=== PATIENT | male | born 1935 | race Caucasian/White ===

== ENCOUNTER 2016-12-10 17:58 | Emergency (ER) | payer MEDICARE, BC ==
[2016-12-10] MEDS ORDERED: cefTRIAXone(*) 1 GM in NS 0.9% 50 ML* 50 ML IVPB ONE (19:19)
[2016-12-10] MEDS ORDERED: NS 0.9% 1000 ML* 1,000 ML IV SCH (19:30)
[2016-12-10 19:47] LABS: Hematocrit 35 % (42-52); Hemoglobin 11.4 g/dl (14.0-18.0); Mean Corpuscular HGB Conc 33 g/dl (31-36); Mean Corpuscular Hemoglobin 30 pg (27-31); Mean Corpuscular Volume 92 fL (80-94); Mean Platelet Volume 7 um3 (7.4-10.4); Red Blood Count 3.77 10^6/ul (4.0-5.4); Red Cell Distribution Width 14 % (10.5-15); White Blood Count 17.9 10^3/ul (3.5-10.8)
[2016-12-10 19:56] LABS: Urine Bacteria 1+ (Absent); Urine Bilirubin Negative (Negative); Urine Glucose Negative (Negative); Urine Nitrite Positive (Negative)
[2016-12-10 20:02] LABS: Albumin 4.2 g/dL (3.2-5.2); BUN/Creatinine Ratio 35.8 (8-20); C Reactive Protein 29.22 mg/L (< 5.00); Calcium 9.5 mg/dL (8.6-10.3); EGFR Non-African American 56.8 (>60); Globulin 2.7 g/dL (2-4); Total Bilirubin 0.4 mg/dL (0.2-1.0); Total Protein 6.9 g/dL (6.4-8.9)
[2016-12-10] MEDS ORDERED: Ciprofloxacin TAB* 500 MG PO ONE ×2 (21:33→21:34)
--- NOTE | 2016-12-10 21:42 | ED ---
Lynn Sharma Thomas, scribed for Loco Mcmullen MD on 12/10/16 at 1922 . GI/ HPI - HPI Summary HPI Summary: The pt is a 81 y/o M presenting to the ED with a febrile illness (Tmax 101.5) with complaints of dizziness and subjective hotness. He says that he began to feel ill today at 15:00. He believes that his current symptoms are similar to his past symptoms of a UTI. He has an indwelling Vance catheter that was changed a week ago. Prior to arrival, the patient took a ciprofloxacin that was left over from a past UTI antibiotic regimen. 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 Pt denies cough, chest congestion, abd pain, nausea, vomiting. He has a Hx of UTIs. PMHx: UTIs, indwelling Vance d/t urinary retention, HTN, Parkinsons, osteoarthritis. PSHx: TURP. SHx: no smoking , rare alcohol use, daily Percocet for which he is prescribed. He is accompanied by his . - History of Current Complaint Chief Complaint: EDFever Time Seen by Provider: 12/10/16 19:08 Stated Complaint: FEVER Hx Obtained From: Patient, Family/Employment Programs Analyst - in room Onset/Duration: Started Hours Ago - today at 15:00, Still Present Pain Intensity: 6 Associated Signs and Symptoms: Positive: Dizziness, Constipation - chronic, secondary to Percocet, Fever - Tmax 101.. Negative: Nausea, Vomiting, Abdominal Pain, Cough, Other: - POS: subjective hotness; NEG: chest congestion Aggravating Factor(s): Nothing Alleviating Factor(s): Nothing - Additional Pertinent History Primary Care Physician: [id number] - Allergy/Home Medications Allergies/Adverse Reactions: Allergies Allergy/AdvReac Type Severity Reaction Status Date / Time Allopurinol Allergy Unknown Unknown Verified 12/10/16 18:27 Reaction Details Aspirin AdvReac Intermediate Heartburn Verified 12/10/16 18:27 Alpha Caleb Quinazolines AdvReac Dizziness Verified 12/10/16 18:27 ALPHA BLOCKERS AdvReac Dizziness Uncoded 12/10/16 18:27 PMH/Surg Hx/FS Hx/Imm Hx Previously Healthy: No Cardiovascular History: Reports: Hx Hypertension Respiratory History: Denies: Hx Pneumonia GI History: Reports: Other GI Disorders - constipation History: Reports: Hx Benign Prostatic Hyperplasia - TURP within last 5 years , Other Problems/Disorders - Hx UTIs Musculoskeletal History: Reports: Hx Arthritis - NECK SARAH SHOULDERS, Hx Tendonitis - SHOULDER Sensory History: Reports: Hx Contacts or Glasses - GLASSES Denies: Hx Hearing Aid Opthamlomology History: Reports: Hx Contacts or Glasses - GLASSES Neurological History: Reports: Other Neuro Impairments/Disorders - parkinson's disease - Surgical History Surgery Procedure, Year, and Place: 1983 ROTATOR [facility]. 2008 HERNIA [facility]. 1986 RT TOTAL KNEE [facility]. 1986 LT TOTAL KNEE [facility]. 1993 LUMBAR STENOSIS [facility]. 2011 TURP [facility] Hx Anesthesia Reactions: No Infectious Disease History: No Infectious Disease History: Denies: Traveled Outside the [place] in Last 30 Days - Family History Known Family History: Positive: Other - lung CA - mother, [place] - father - Social History Alcohol Use: Rare Substance Use Type: Reports: Prescribed Substance Use Comment - Amount & Last Used: percocet [id number] for 3-4 years Smoking Status (MU): Never Smoked Tobacco Review of Systems Positive: Fever - Tmax 101.5, Other - POS: subjective hotness Negative: Cough, Other - NEG: chest congestion Positive: Other - POS: constipation (chronic and d/t Percocet). Negative: Abdominal Pain, Vomiting, Nausea Positive: other - POS: Sx of a UTI (per patient) Neurological: Other - POS: dizziness All Other Systems Reviewed And Are Negative: Yes Physical Exam Triage Information Reviewed: Yes Vital Signs On Initial Exam: Initial Vitals Temp Pulse Resp BP Pulse Ox 101.5 F 89 24 173/63 96 12/10/16 18:02 12/10/16 18:02 12/10/16 18:02 12/10/16 18:02 12/10/16 18:02 Vital Signs Reviewed: Yes Appearance: Positive: No Pain Distress, Well-Nourished, Ill-Appearing - mild Skin: Positive: Warm, Skin Color Reflects Adequate Perfusion, Dry Head/Face: Positive: Normal Head/Face Inspection Eyes: Positive: EOMI, CLAUDIA ENT: Positive: Normal ENT inspection Neck: Positive: Supple, Nontender Respiratory/Lung Sounds: Positive: Clear to Auscultation, Breath Sounds Present Cardiovascular: Positive: RRR Abdomen Description: Positive: Nontender, Soft Musculoskeletal: Positive: Normal Neurological: Positive: Normal, Sensory/Motor Intact, Alert, Oriented to Person Place, Time Psychiatric: Positive: Affect/Mood Appropriate - Ángela Coma Scale Coma Scale Total: 15 Diagnostics - Vital Signs Vital Signs Temp Pulse Resp BP Pulse Ox 12/10/16 18:24 101.5 F 89 20 161/55 97 12/10/16 18:02 101.5 F 89 24 173/63 96 - Laboratory Lab Results: Lab Results 12/10/16 12/10/16 12/10/16 Range/Units 19:30 19:30 19:30 WBC (3.5-10.8) 10^3/ul RBC (4.0-5.4) 10^6/ul Hgb (14.0-18.0) g/dl Hct (42-52) % MCV (80-94) fL MCH (27-31) pg MCHC (31-36) g/dl RDW (10.5-15) % Plt Count (150-450) 10^3/ul MPV (7.4-10.4) um3 Neut % (Auto) (38-83) % Lymph % (Auto) (25-47) % [place] % (Auto) (1-9) % Eos % (Auto) (0-6) % Baso % (Auto) (0-2) % Absolute Neuts (auto) (1.5-7.7) 10^3/ul Absolute Lymphs (auto) (1.0-4.8) 10^3/ul Absolute Monos (auto) (0-0.8) 10^3/ul Absolute Eos (auto) (0-0.6) 10^3/ul Absolute Basos (auto) (0-0.2) 10^3/ul Absolute Nucleated RBC 10^3/ul Nucleated RBC % INR (Anticoag Therapy) 0.97 (0.89-1.11) APTT 33.3 (26.0-36.3) seconds Sodium 136 (133-145) mmol/L Potassium 5.0 (3.5-5.0) mmol/L Chloride 109 (101-111) mmol/L Carbon Dioxide 22 (22-32) mmol/L Anion Gap 5 (2-11) mmol/L BUN 44 H (6-24) mg/dL Creatinine 1.23 H (0.67-1.17) mg/dL Est GFR ( Amer) 73.0 (>60) Est GFR (Non-Af Amer) 56.8 (>60) BUN/Creatinine Ratio 35.8 H (8-20) Glucose 118 H (70-100) mg/dL Lactic Acid (0.5-2.0) mmol/L Calcium 9.5 (8.6-10.3) mg/dL Total Bilirubin 0.40 (0.2-1.0) mg/dL AST 12 L (13-39) U/L ALT 6 L (7-52) U/L Alkaline Phosphatase 74 (34-104) U/L C-Reactive Protein 29.22 H (< 5.00) mg/L B-Natriuretic Peptide 106 H ( - 100) pg/mL Total Protein 6.9 (6.4-8.9) g/dL Albumin 4.2 (3.2-5.2) g/dL Globulin 2.7 (2-4) g/dL Albumin/Globulin Ratio 1.6 (1-3) Lipase 12 (11.0-82.0) U/L Urine Color Urine Appearance Urine pH (5-9) Ur Specific [place] (1.010-1.030) Urine Protein (Negative) Urine Ketones (Negative) Urine Blood (Negative) Urine Nitrate (Negative) Urine Bilirubin (Negative) Urine Urobilinogen (Negative) Ur Leukocyte Esterase (Negative) Urine WBC (Auto) (Absent) Urine RBC (Auto) (Absent) Ur Squamous Epith Cells (Absent) Urine Bacteria (Absent) Hyaline Casts (Absent) Urine Glucose (Negative) 12/10/16 12/10/16 12/10/16 Range/Units 19:30 19:30 19:30 WBC 17.9 H (3.5-10.8) 10^3/ul RBC 3.77 L (4.0-5.4) 10^6/ul Hgb 11.4 L (14.0-18.0) g/dl Hct 35 L (42-52) % MCV 92 (80-94) fL MCH 30 (27-31) pg MCHC 33 (31-36) g/dl RDW 14 (10.5-15) % Plt Count 245 (150-450) 10^3/ul MPV 7 L (7.4-10.4) um3 Neut % (Auto) 87.4 H (38-83) % Lymph % (Auto) 4.1 L (25-47) % [place] % (Auto) 6.7 (1-9) % Eos % (Auto) 1.3 (0-6) % Baso % (Auto) 0.5 (0-2) % Absolute Neuts (auto) 15.7 H (1.5-7.7) 10^3/ul Absolute Lymphs (auto) 0.7 L (1.0-4.8) 10^3/ul Absolute Monos (auto) 1.2 H (0-0.8) 10^3/ul Absolute Eos (auto) 0.2 (0-0.6) 10^3/ul Absolute Basos (auto) 0.1 (0-0.2) 10^3/ul Absolute Nucleated RBC 0 10^3/ul Nucleated RBC % 0 INR (Anticoag Therapy) (0.89-1.11) APTT (26.0-36.3) seconds Sodium (133-145) mmol/L Potassium (3.5-5.0) mmol/L Chloride (101-111) mmol/L Carbon Dioxide (22-32) mmol/L Anion Gap (2-11) mmol/L BUN (6-24) mg/dL Creatinine (0.67-1.17) mg/dL Est GFR ( Amer) (>60) Est GFR (Non-Af Amer) (>60) BUN/Creatinine Ratio (8-20) Glucose (70-100) mg/dL Lactic Acid 1.4 (0.5-2.0) mmol/L Calcium (8.6-10.3) mg/dL Total Bilirubin (0.2-1.0) mg/dL AST (13-39) U/L ALT (7-52) U/L Alkaline Phosphatase (34-104) U/L C-Reactive Protein (< 5.00) mg/L B-Natriuretic Peptide ( - 100) pg/mL Total Protein (6.4-8.9) g/dL Albumin (3.2-5.2) g/dL Globulin (2-4) g/dL Albumin/Globulin Ratio (1-3) Lipase (11.0-82.0) U/L Urine Color Yellow Urine Appearance Clear Urine pH 5.0 (5-9) Ur Specific [place] 1.015 (1.010-1.030) Urine Protein Negative (Negative) Urine Ketones Negative (Negative) Urine Blood Negative (Negative) Urine Nitrate Positive H (Negative) Urine Bilirubin Negative (Negative) Urine Urobilinogen Negative (Negative) Ur Leukocyte Esterase 3+ H (Negative) Urine WBC (Auto) 3+(>20/hpf) H (Absent) Urine RBC (Auto) Absent (Absent) Ur Squamous Epith Cells Present H (Absent) Urine Bacteria 1+ H (Absent) Hyaline Casts Present H (Absent) Urine Glucose Negative (Negative) Result Diagrams: 12/10/16 19:30 12/10/16 19:30 Lab Statement: Any lab studies that have been ordered have been reviewed, and results considered in the medical decision making process. GIGU Course/Dx - Course Assessment/Plan: The pt is a 81 y/o M presenting to the ED with a febrile illness (Tmax 101.5) with complaints of dizziness and subjective hotness. He says that he began to feel ill today at 15:00. He believes that his current symptoms are similar to his past symptoms of a UTI. He has an indwelling Vance catheter that was changed a week ago. Prior to arrival, the patient took a ciprofloxacin that was left over from a past UTI antibiotic regimen. 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 Pt denies cough, chest congestion, abd pain, nausea, vomiting. He has a Hx of UTIs. PMHx: UTIs, indwelling Vance d/t urinary retention, HTN, Parkinsons, osteoarthritis. PSHx: TURP. SHx: no smoking, rare alcohol use, daily Percocet for which he is prescribed. He is accompanied by his . In the ED the patient was given IV fluids and Rocephin IVPB. Bloodwork shows WBC 17.9, RBC 3.77, Hgb 11.3, Hct 35, absolute neuts 15.7, absolute monos 1.2, BUN 44, creatinine 1.23, Glucose 118, AST 12, ALT 6, CRp 29.22, BNP 106. UA shows positive nitrate, 3+ leukocyte esterase, 3+ WBC, 1+ bacteria, hyaline casts, and present squamous cells. NO CRITICAL CARE TIME. DISCUSSED RESULTS WITH PATIENT. HE STATES CIPRO HAS HELPED HIM IN THE PAST. DISCUSSED ADMISSION WITH PATIENT/. HE PREFERS TO GO HOME; WILL RETURN IF WORSE. - Diagnoses Provider Diagnoses: UTI (urinary tract infection) Discharge - Discharge Plan Condition: Stable Disposition: HOME Prescriptions: Ciprofloxacin TAB* [Cipro 500 MG TAB*] 500 mg PO BID #18 tab Patient Education Materials: Urinary Tract Infection in Men (ED), Catheter- associated Urinary Tract Infection (ED) Referrals: Hector Carmen MD [Primary Care Provider] - Additional Instructions: FOLLOW UP WITH YOUR DOCTOR. RETURN TO THE EMERGENCY DEPARTMENT FOR ANY WORSENING OF YOUR CONDITION; FEVER, YOU FEEL ILL OR QUESTIONS OR CONCERNS. The documentation as recorded by the Lynn barajas Thomas accurately reflects the service I personally performed and the decisions made by me, Loco Mcmullen MD.
[2016-12-10 22:01] VITALS: BP 119/50
--- NOTE | 2016-12-15 09:00 | ED ---
Progress - Progress Note Progress Note: Pt's urine reveals ESBL - he was started on cipro to which organism is resistant. Spoke w/ pt who agrees to stop this anbx and start doxycycline - e-rx 'd to [facility] on [facility] per his request. 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 Reminded him if he has worsening of sx to return to ED - otherwise f/u w / PCP. Course/Dx - Diagnoses Provider Diagnoses: UTI (urinary tract infection)
== END 2016-12-10 22:07 | disposition home or self-care (01) ==
LOC: ED 17:58
DX: N39.0 Urinary tract infection, site not specified (principal); I10 Essential (primary) hypertension; A49.8 Other bacterial infections of unspecified site
CPT/HCPCS: 36415; 80053; 81003; 81015; 83605; 83690; 83880; 85025; 85610; 85730; 86140; 87040; 87077; 87086; 87186; 96360; 99284; A9270-GY; J0696

== ENCOUNTER 2017-02-03 01:11 | Inpatient (IN) | payer MEDICARE, BC ==
[2017-02-03] MEDS ORDERED: Acetaminophen TAB* 325 MG PO ONE (01:38)
[2017-02-03] MEDS ORDERED: NS 0.9% 1000 ML* 1,000 ML IV ONE ×2 (01:38→07:37)
[2017-02-03 02:07] LABS: Hematocrit 36 % (42-52); Mean Corpuscular HGB Conc 33 g/dl (31-36); Mean Corpuscular Hemoglobin 31 pg (27-31); Mean Corpuscular Volume 93 fL (80-94); Mean Platelet Volume 7 um3 (7.4-10.4); Red Blood Count 3.89 10^6/ul (4.0-5.4); Red Cell Distribution Width 14 % (10.5-15)
[2017-02-03 02:20] LABS: Albumin 4.5 g/dL (3.2-5.2); BUN/Creatinine Ratio 35.2 (8-20); C Reactive Protein 33.1 mg/L (< 5.00); Calcium 9.5 mg/dL (8.6-10.3); EGFR African American 54.3 (>60); EGFR Non-African American 42.2 (>60); Globulin 2.7 g/dL (2-4); Total Bilirubin 0.4 mg/dL (0.2-1.0); Total Protein 7.2 g/dL (6.4-8.9)
[2017-02-03 02:22] LABS: Potassium 5.4 mmol/L (3.5-5.0)
[2017-02-03] MEDS ORDERED: Vancomycin(*) 1,000 MG in NS 0.9% 250 ML* 250 ML IVPB ONE (02:24)
[2017-02-03 02:52] LABS: Urine Bacteria 1+ (Absent); Urine Bilirubin Negative (Negative); Urine Glucose Negative (Negative); Urine Nitrite Positive (Negative)
[2017-02-03] MEDS ORDERED: NS 0.9% 1000 ML* 2,000 ML IV ONE (03:03)
--- NOTE | 2017-02-03 03:15 | ED ---
Lina Sharma Edward, scribed for Rashaun Morgan on 02/03/17 at 0131 . HPI Febrile Illness - HPI Summary HPI Summary: 81 y/o male BIBA c/o fever starting at around 23:00 tonight. The symptoms are not aggravated or alleviated with anything. Pt also c/o increased trembling, weakness, AMS, and ABD pain. Denies any change in appetite or oral intake. Pt walks with a walker. Pt is usually alert and oriented, per pt's family. PMHx HTN , arthritis, Parkinson's. - History of Current Complaint Hx Obtained From: Patient Onset/Duration: Started Hours Ago, Still Present Associated Signs and Symptoms: Altered Mental Status, Weakness, Other: - ABD pain, increased trembling - Additional Pertinent History Primary Care Physician: [id number] - Allergy/Home Medications Allergies/Adverse Reactions: Allergies Allergy/AdvReac Type Severity Reaction Status Date / Time Allopurinol Allergy Unknown Unknown Verified 12/10/16 18:27 Reaction Details Aspirin AdvReac Intermediate Heartburn Verified 12/10/16 18:27 Alpha Caleb Quinazolines AdvReac Dizziness Verified 12/10/16 18:27 ALPHA BLOCKERS AdvReac Dizziness Uncoded 12/10/16 18:27 PMH/Surg Hx/FS Hx/Imm Hx Previously Healthy: No Cardiovascular History: Reports: Hx Hypertension Respiratory History: Denies: Hx Pneumonia GI History: Reports: Other GI Disorders - constipation History: Reports: Hx Benign Prostatic Hyperplasia - TURP within last 5 years , Other Problems/Disorders - Hx UTIs Musculoskeletal History: Reports: Hx Arthritis - NECK SARAH SHOULDERS, Hx Tendonitis - SHOULDER Sensory History: Reports: Hx Contacts or Glasses - GLASSES Denies: Hx Hearing Aid Opthamlomology History: Reports: Hx Contacts or Glasses - GLASSES Neurological History: Reports: Other Neuro Impairments/Disorders - parkinson's disease - Surgical History Surgery Procedure, Year, and Place: 1983 R[facility]. 2008 H[facility]IA [facility]. 1986 RT TOTAL KNEE [facility]. 1986 LT TOTAL KNEE [facility]. 1993 LUMBAR STENOSIS [facility]. 2011 TURP [facility] Hx Anesthesia Reactions: No - Family History Known Family History: Positive: Hypertension, Other - lung CA - mother, [place] - father Negative: Diabetes - Social History Alcohol Use: Rare Hx Substance Use: Yes Substance Use Type: Reports: Prescribed Substance Use Comment - Amount & Last Used: percocet [id number] for 3-4 years Hx Tobacco Use: No Smoking Status (MU): Never Smoked Tobacco Review of Systems Positive: Fever Eyes: Negative ENT: Negative Cardiovascular: Negative Respiratory: Negative Positive: Abdominal Pain Genitourinary: Negative Musculoskeletal: Negative Skin: Negative Neurological: Other - Increased trembling, AMS Positive: Weakness Psychological: Normal All Other Systems Reviewed And Are Negative: Yes Physical Exam Triage Information Reviewed: Yes Vital Signs On Initial Exam: Initial Vitals Temp Pulse Resp BP Pulse Ox 100.8 F 92 27 175/54 93 02/03/17 01:22 02/03/17 01:22 02/03/17 01:22 02/03/17 01:22 02/03/17 01:22 Vital Signs Reviewed: Yes Appearance: Positive: Well-Appearing, No Pain Distress Skin: Positive: Warm, Skin Color Reflects Adequate Perfusion, Dry Head/Face: Positive: Normal Head/Face Inspection Eyes: Positive: EOMI, CLAUDIA ENT: Positive: Other - Dry mucous membranes Neck: Positive: Supple, Nontender Respiratory/Lung Sounds: Positive: Clear to Auscultation, Breath Sounds Present Cardiovascular: Positive: RRR, Pulses are Symmetrical in both Upper and Lower Extremities Abdomen Description: Positive: Nontender, Soft Bowel Sounds: Positive: Present Musculoskeletal: Positive: Normal, Strength/ROM Intact Neurological: Positive: Sensory/Motor Intact, Other - Alert and confused Diagnostics - Vital Signs Vital Signs Temp Pulse Resp BP Pulse Ox 02/03/17 03:00 97 24 152/49 92 02/03/17 02:30 94 20 153/55 93 02/03/17 02:13 97 15 95 02/03/17 02:11 143/99 02/03/17 01:49 95 26 94 02/03/17 01:30 173/52 02/03/17 01:29 172/50 02/03/17 01:22 100.8 F 92 27 175/54 93 - Laboratory Lab Results: Lab Results 02/03/17 02/03/17 02/03/17 Range/Units 01:45 01:45 01:45 WBC 18.0 H (3.5-10.8) 10^3/ul RBC 3.89 L (4.0-5.4) 10^6/ul Hgb 12.0 L (14.0-18.0) g/dl Hct 36 L (42-52) % MCV 93 (80-94) fL MCH 31 (27-31) pg MCHC 33 (31-36) g/dl RDW 14 (10.5-15) % Plt Count 276 (150-450) 10^3/ul MPV 7 L (7.4-10.4) um3 Neut % (Auto) 88.1 H (38-83) % Lymph % (Auto) 4.0 L (25-47) % [place] % (Auto) 6.6 (1-9) % Eos % (Auto) 0.9 (0-6) % Baso % (Auto) 0.4 (0-2) % Absolute Neuts (auto) 15.9 H (1.5-7.7) 10^3/ul Absolute Lymphs (auto) 0.7 L (1.0-4.8) 10^3/ul Absolute Monos (auto) 1.2 H (0-0.8) 10^3/ul Absolute Eos (auto) 0.2 (0-0.6) 10^3/ul Absolute Basos (auto) 0.1 (0-0.2) 10^3/ul Absolute Nucleated RBC 0 10^3/ul Nucleated RBC % 0 INR (Anticoag Therapy) 0.97 (0.89-1.11) APTT 31.5 (26.0-36.3) seconds Sodium 136 (133-145) mmol/L Potassium 5.4 H (3.5-5.0) mmol/L Chloride 103 (101-111) mmol/L Carbon Dioxide 23 (22-32) mmol/L Anion Gap 10 (2-11) mmol/L BUN 56 H (6-24) mg/dL Creatinine 1.59 H (0.67-1.17) mg/dL Est GFR ( Amer) 54.3 (>60) Est GFR (Non-Af Amer) 42.2 (>60) BUN/Creatinine Ratio 35.2 H (8-20) Glucose 152 H (70-100) mg/dL Lactic Acid (0.5-2.0) mmol/L Calcium 9.5 (8.6-10.3) mg/dL Total Bilirubin 0.40 (0.2-1.0) mg/dL AST 13 (13-39) U/L ALT 9 (7-52) U/L Alkaline Phosphatase 84 (34-104) U/L Troponin I 0.00 (<0.04) ng/mL C-Reactive Protein 33.10 H (< 5.00) mg/L Total Protein 7.2 (6.4-8.9) g/dL Albumin 4.5 (3.2-5.2) g/dL Globulin 2.7 (2-4) g/dL Albumin/Globulin Ratio 1.7 (1-3) Lipase 10 L (11.0-82.0) U/L Urine Color Urine Appearance Urine pH (5-9) Ur Specific [place] (1.010-1.030) Urine Protein (Negative) Urine Ketones (Negative) Urine Blood (Negative) Urine Nitrate (Negative) Urine Bilirubin (Negative) Urine Urobilinogen (Negative) Ur Leukocyte Esterase (Negative) Urine WBC (Auto) (Absent) Urine RBC (Auto) (Absent) Urine Bacteria (Absent) Urine Glucose (Negative) 02/03/17 02/03/17 Range/Units 01:45 02:20 WBC (3.5-10.8) 10^3/ul RBC (4.0-5.4) 10^6/ul Hgb (14.0-18.0) g/dl Hct (42-52) % MCV (80-94) fL MCH (27-31) pg MCHC (31-36) g/dl RDW (10.5-15) % Plt Count (150-450) 10^3/ul MPV (7.4-10.4) um3 Neut % (Auto) (38-83) % Lymph % (Auto) (25-47) % [place] % (Auto) (1-9) % Eos % (Auto) (0-6) % Baso % (Auto) (0-2) % Absolute Neuts (auto) (1.5-7.7) 10^3/ul Absolute Lymphs (auto) (1.0-4.8) 10^3/ul Absolute Monos (auto) (0-0.8) 10^3/ul Absolute Eos (auto) (0-0.6) 10^3/ul Absolute Basos (auto) (0-0.2) 10^3/ul Absolute Nucleated RBC 10^3/ul Nucleated RBC % INR (Anticoag Therapy) (0.89-1.11) APTT (26.0-36.3) seconds Sodium (133-145) mmol/L Potassium (3.5-5.0) mmol/L Chloride (101-111) mmol/L Carbon Dioxide (22-32) mmol/L Anion Gap (2-11) mmol/L BUN (6-24) mg/dL Creatinine (0.67-1.17) mg/dL Est GFR ( Amer) (>60) Est GFR (Non-Af Amer) (>60) BUN/Creatinine Ratio (8-20) Glucose (70-100) mg/dL Lactic Acid 2.3 H* (0.5-2.0) mmol/L Calcium (8.6-10.3) mg/dL Total Bilirubin (0.2-1.0) mg/dL AST (13-39) U/L ALT (7-52) U/L Alkaline Phosphatase (34-104) U/L Troponin I (<0.04) ng/mL C-Reactive Protein (< 5.00) mg/L Total Protein (6.4-8.9) g/dL Albumin (3.2-5.2) g/dL Globulin (2-4) g/dL Albumin/Globulin Ratio (1-3) Lipase (11.0-82.0) U/L Urine Color Yellow Urine Appearance Cloudy Urine pH 5.0 (5-9) Ur Specific [place] 1.014 (1.010-1.030) Urine Protein Negative (Negative) Urine Ketones Negative (Negative) Urine Blood Negative (Negative) Urine Nitrate Positive H (Negative) Urine Bilirubin Negative (Negative) Urine Urobilinogen Negative (Negative) Ur Leukocyte Esterase 3+ H (Negative) Urine WBC (Auto) 3+(>20/hpf) H (Absent) Urine RBC (Auto) 1+(3-5/hpf) H (Absent) Urine Bacteria 1+ H (Absent) Urine Glucose Negative (Negative) Result Diagrams: 02/03/17 01:45 02/03/17 01:45 Lab Statement: Any lab studies that have been ordered have been reviewed, and results considered in the medical decision making process. - Radiology CXR Xray Interpretation: No Acute Changes Radiology Interpretation Completed By: ED Physician - CT HEAD CT CT Interpretation: No Acute Changes - No acute brain parenchymal abnormality. No hemorrhage, mass or acute territorial infarct. Atrophy and chronic small vessel ischemic changes. No skull fracture. Clear visualized paranasal sinuses. Visualized mastoid air cells clear. CT Interpretation Completed By: Radiologist - EKG 1 EKG Interpretation: 02:07 - SR @ 96 BPM. NO ACUTE CHANGES Course/Dx - Course Assessment/Plan: 81 y/o male BIBA c/o fever starting at around 23:00 tonight. The symptoms are not aggravated or alleviated with anything. Pt also c/o increased trembling, weakness, AMS, and ABD pain. Denies any change in appetite or oral intake. Pt walks with a walker. Pt is usually alert and oriented, per pt 's family. PMHx HTN, arthritis, Parkinson's. EKG @ 02:07 - SR @ 96 BPM. NO ACUTE CHANGES. Test results show lactic acid 2.3. HEAD CT SHOWS No acute brain parenchymal abnormality. No hemorrhage, mass or acute territorial infarct. Atrophy and chronic small vessel ischemic changes. No skull fracture. Clear visualized paranasal sinuses. Visualized mastoid air cells clear. CXR negative. Pt will be admitted to Dr. Pearson at 02:45. - Febrile Illness Differential Diagnoses: Bacteremia, Pneumonia, Pyelonephritis, Sepsis - Diagnoses Provider Diagnoses: Sepsis, Delirium, Parkinson disease - Provider Notifications Discussed Care Of Patient With: Ashvin Pearson Time Discussed With Above Provider: 02:59 Instructed by Provider To: Admit As Inpatient - Critical Care Time Critical Care Time: 30-74 min Discharge - Discharge Plan Condition: Stable Disposition: ADMITTED TO [facility] Referrals: Hector Carmen MD [Primary Care Provider] - The documentation as recorded by the Lina barajas Edward accurately reflects the service I personally performed and the decisions made by , Rashaun Morgan.
[2017-02-03] MEDS ORDERED: NS 0.9% 1000 ML* 1,000 ML IV SCH ×2 (04:45→16:30)
[2017-02-03] MEDS ORDERED: oxyCODONE/Acetamin 10/325(NF) TAB PO PRN (04:46)
[2017-02-03] MEDS ORDERED: Zosyn per Pharmacy* NOTE FOLLOW UP SCH (05:00)
[2017-02-03] MEDS: oxyCODONE/Acetamin 5/325 MG* TAB PO PRN ×3 (06:33→17:21)
[2017-02-03] MEDS: Enoxaparin(*) 30 MG/0.3 ML SYR SUBCUT SCH (06:35)
[2017-02-03] MEDS: Carbidopa/Levodop 10/100 MG TAB(*) PO SCH ×10 (07:09→22:36)
[2017-02-03] MEDS: ZOSYN 3.375 GM Q8H per EXTENDED INFUSION IVPB SCH ×6 (07:36→22:35)
--- NOTE | 2017-02-03 08:49 | RAD ---
Indication: Fever, weakness. Comparison: February 18, 2016 Technique: Noncontrast CT vertex of skull through foramen magnum. Report: The sulci, ventricles, and basal cisterns are unremarkable for age with mild involutional change. Barnes matter white matter differentiation is preserved without evidence for edema. No intra or extra axial hemorrhage, mass, or fluid collection detected. Unremarkable visualized orbital contents. Unremarkable calvarium and skull base. Unremarkable scalp. The visualized paranasal sinuses and mastoid air spaces are clear. IMPRESSION: Mild involutional change. No acute intracranial process evident.
--- NOTE | 2017-02-03 08:51 | RAD ---
Indication: Fever. Weakness. Comparison: February 18, 2016 Technique: Upright AP 0208 hours Report: Clear lungs and pleural spaces. Negative for pneumothorax. The heart, pulmonary vasculature, and mediastinal contours are unremarkable. Negative for free air beneath the diaphragm. Unremarkable osseous structures and soft tissue contours. IMPRESSION: No evidence for acute intrathoracic disease.
[2017-02-03] MEDS: Clopidogrel TAB* 75 MG PO SCH (09:42)
[2017-02-03] MEDS: Metoprolol Succinate XL TAB* 50 MG PO SCH (10:06)
[2017-02-03] MEDS: oxyCODONE TAB* 5 MG TAB PO PRN ×2 (11:11→17:21)
[2017-02-03 11:19] LABS: Hematocrit 29 % (42-52); Hemoglobin 9.6 g/dl (14.0-18.0); Mean Corpuscular HGB Conc 33 g/dl (31-36); Mean Corpuscular Hemoglobin 31 pg (27-31); Mean Corpuscular Volume 93 fL (80-94); Mean Platelet Volume 7 um3 (7.4-10.4); Red Blood Count 3.09 10^6/ul (4.0-5.4); Red Cell Distribution Width 14 % (10.5-15); White Blood Count 22.6 10^3/ul (3.5-10.8)
[2017-02-03 11:31] LABS: BUN/Creatinine Ratio 33.8 (8-20); Calcium 8.1 mg/dL (8.6-10.3); EGFR African American 57.6 (>60); EGFR Non-African American 44.8 (>60); Potassium 4.8 mmol/L (3.5-5.0)
--- NOTE | 2017-02-03 16:13 | HP ---
CC: Dr. Carmen; Dr. Gutierrez ADMISSION HISTORY AND PHYSICAL: DATE OF ADMISSION: 02/03/17 CHIEF COMPLAINT: Confusion. HISTORY OF PRESENT ILLNESS: Mr. Montana is a 81-year-old man with a history of Parkinson's disease, who developed rigors and tremors around 6 p.m. this evening suddenly. He had been in his usual state of health essentially up until then and got ill suddenly. He had a temperature of 99.1 at home. He was much weaker than usual. The only warning the patient had of any problem was his urine was that he noted that his urine smelled different yesterday. The patient denies any dysuria. He does have an indwelling catheter that is changed every 5 or [address] Gutierrez's office. The last change was about 2 weeks ago. Patient was brought to the emergency department and some confusion was noted in the emergency department including disorientation to the date. The patient was seen in the emergency department and we are asked to admit the patient. The patient was last admitted to this hospital in February 2016 with urinary tract infection and confusion. At that time, he was treated with meropenem for presumed ESBL E. coli and did well. PAST MEDICAL HISTORY: Includes Parkinson's disease, BPH with indwelling Vance, hypertension, polymyalgia rheumatica, bilateral shoulder osteoarthritis, and vertigo. PAST SURGICAL HISTORY: TURP in the past. MEDICATIONS ON ADMISSION: 1. Carbidopa/levodopa 1 tab every 2 to 2-1/2 hours throughout the day, up to 9 pills per day. 2. Clopidogrel 75 mg p.o. daily. 3. Hydrochlorothiazide 25 mg p.o. q.a.m. 4. Lisinopril 10 mg p.o. daily. 5. Meloxicam 15 mg p.o. daily. 6. Toprol XL 50 mg p.o. daily. 7. Amlodipine 10 mg p.o. daily. 8. Oxycodone/acetaminophen 10/325 one tab q.4 hours p.r.n. pain. ALLERGIES: ASPIRIN, ALLOPURINOL, ALPHA BLOCKERS. 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 He is . He has 4 children. His is his healthcare proxy. He never smoke. No alcohol or drug use. FAMILY HISTORY: Father of [place] at age 50. Mother of lung cancer, she was a nonsmoker. His sister, brother and mother all have had diabetes. REVIEW OF SYSTEMS: The patient denies any anorexia or weight loss. Patient denies any chest pain or palpitations. Patient denies any hemoptysis, shortness of breath, but has had some cough. Patient denies any abdominal pain , nausea or vomiting. The patient denies any focal weakness or sensory loss but has noted increased tremors since becoming ill this evening. Remainder of 14-point review of systems is negative other than that mentioned in the HPI. PHYSICAL EXAMINATION GENERAL: He is alert, in no acute distress. VITAL SIGNS: Temperature is 38.2, pulse 91, respirations 24, blood pressure is 141/50, O2 sat 94%. HEENT: Head is normocephalic, atraumatic. Sclerae anicteric. Pupils are equal , round and reactive to light and accommodation. Oropharynx is dry. No lesions. NECK: No JVD, no carotid bruits, no thyromegaly. LUNGS: Clear to auscultation and percussion bilaterally. HEART: Regular rate and rhythm without murmurs or gallops. ABDOMEN: Soft, nontender, positive bowel sounds. No hepatosplenomegaly. There is no CVA tenderness. EXTREMITIES: No peripheral edema. Dorsalis pedis pulses are 1+ bilaterally. NEUROLOGIC: Cranial nerves II through XII are intact. There are resting tremors in the arms and legs and generalized stiffness and cogwheeling. He is alert and oriented to person and date. DIAGNOSTIC STUDIES/LAB DATA: Sodium 136, potassium 5.4, chloride 103, bicarb 23, BUN 56, creatinine 1.59, glucose 152, calcium 9.5, albumin 4.5. AST 13, ALT 19, bilirubin 0.4. CRP 33.1, lipase 10, lactic acid 2.3. Troponin 0.00. White count 18.0, hemoglobin 12.0, hematocrit 36%, platelets 276. INR 0.97, PTT 31.5. Urinalysis shows positive nitrites, 3+ leuk esterase, 2+ red cells. EKG shows normal sinus rhythm, normal axis, early transition, but no ischemia. Chest x-ray is negative for infiltrates or effusions. Head CT shows only atrophy, no bleed or infarct. ASSESSMENT AND PLAN: 1. A 81-year-old man with sepsis due to urinary tract infection which is a complication of indwelling Vance catheter. Given the previous resistance pattern, we would suspect he has extended-spectrum beta-lactamases E. coli again. This appears to be sensitive to Zosyn in the last culture, so he can continue on Zosyn which was started in the emergency department. If he does not clinically respond to this, we can switch him to meropenem again. Due to sepsis, he has received blood cultures and urine cultures and he had 30 ml/kg of intravenous fluids in the emergency department. We will continue his IV fluid repletion on the floor. 2. The patient has acute kidney injury with creatinine above baseline. We will hydrated as above and recheck this in the morning. I suspect he has a prerenal azotemia, but if this worsens, he could have a renal ultrasound to check out postrenal obstruction. To improve kidney perfusion, he will have his diuretics held, his lisinopril held and NSAIDS will be avoided to prevent further kidney damage. 3. For Parkinson's disease, we will continue him on his Sinemet close to his usual home schedule. 4. Code status is full. Case was discussed with patient and his . 5. DVT prophylaxis will be with subcutaneous Lovenox. He is at high risk of DVT given his age and his illness. [id number]/[facility] #: [id number] [facility]y
--- NOTE | 2017-02-03 18:42 | PN ---
Subjective Date of Service: 02/03/17 Interval History: Pt reports he feels much better today. per daughter who is at the bedside she reports he is doing much better reporting he was very confused last night which has resolved today. The daughter reports he had a recent UTI in which he started abx but did not finish the course. He has an chronic indwelling shaikh that is managed by Dr. Gutierrez's office. Today he currently denies any fever or chills. No abdominal, flank or back pain. Reports good appetite. No blood noted in urine. He reports he has a generalized sense of weakness. Denies body aches. No URI symptoms. Objective Active Medications: Carbidopa/Levodopa (Sinemet Tab(*)) 0.5 tab PO Q2H [facility] Last Admin: 02/03/17 17:14 Dose: 0.5 tab Clopidogrel Bisulfate (Plavix Tab*) 75 mg PO DAILY [facility] Last Admin: 02/03/17 09:42 Dose: 75 mg Enoxaparin Sodium (Lovenox(*)) 30 mg SUBCUT Q24H [facility] Last Admin: 02/03/17 06:35 Dose: 30 mg Piperacillin Sod/Tazobactam (Sod 3.375 gm/ Sodium Chloride) 100 mls @ 25 mls/ hr IVPB Q8H [facility] Last Admin: 02/03/17 15:01 Dose: 25 mls/hr Sodium Chloride (Ns 0.9% 1000 Ml*) 1,000 mls @ 75 mls/hr IV PER RATE [facility] Stop: 02/04/17 05:49 Last Admin: 02/03/17 17:14 Dose: 75 mls/hr Metoprolol Succinate (Toprol Xl Tab*) 50 mg PO DAILY [facility] Last Admin: 02/03/17 10:06 Dose: Not Given Oxycodone HCl (Roxycodone Tab*) 5 mg PO Q4H PRN PRN Reason: PAIN Last Admin: 02/03/17 17:21 Dose: 5 mg Oxycodone/Acetaminophen (Percocet 5/325 Tab*) 1 tab PO Q4H PRN PRN Reason: PAIN Last Admin: 02/03/17 17:21 Dose: 1 tab Pharmacy Consult (Zosyn Per Pharmacy*) 1 note FOLLOW UP .ZOSYN PER PHARMACY [facility] Vital Signs 02/03/17 02/03/17 02/03/17 04:21 04:22 04:30 Temperature 100.3 F 100.3 F Pulse Rate 94 93 Respiratory 21 19 Rate Blood Pressure 143/52 143/60 (mmHg) O2 Sat by Pulse 95 95 Oximetry 02/03/17 02/03/17 02/03/17 05:00 05:30 06:00 Temperature Pulse Rate 94 94 90 Respiratory Rate Blood Pressure 133/50 129/52 133/57 (mmHg) O2 Sat by Pulse 94 94 92 Oximetry 02/03/17 02/03/17 02/03/17 06:07 06:18 06:33 Temperature 100.3 F 98.3 F Pulse Rate 92 Respiratory 18 18 Rate Blood Pressure 133/46 (mmHg) O2 Sat by Pulse 95 Oximetry 02/03/17 02/03/17 02/03/17 07:32 08:00 08:33 Temperature 99.8 F Pulse Rate 83 Respiratory 18 18 18 Rate Blood Pressure 104/38 (mmHg) O2 Sat by Pulse 96 Oximetry 02/03/17 02/03/17 02/03/17 10:36 11:11 13:11 Temperature 98.7 F Pulse Rate 60 Respiratory 18 18 18 Rate Blood Pressure 107/38 (mmHg) O2 Sat by Pulse 98 Oximetry 02/03/17 02/03/17 02/03/17 14:15 17:13 17:21 Temperature 97.8 F Pulse Rate 63 Respiratory 18 20 20 Rate Blood Pressure 120/42 (mmHg) O2 Sat by Pulse 97 Oximetry Oxygen Devices in Use Now: None Appearance: elderly male sitting up in bed in NAD, A+O x3 Eyes: No Scleral Icterus, PERRLA Ears/Nose/Mouth/Throat: NL Teeth, Lips, Gums, Mucous Membranes Moist Neck: NL Appearance and Movements; NL JVP Respiratory: Symmetrical Chest Expansion and Respiratory Effort, Clear to Auscultation Cardiovascular: NL Sounds; No Murmurs; No JVD, RRR, No Edema Abdominal: NL Sounds; No Tenderness; No Distention, - - No CVA tenderness Extremities: No Edema, No Clubbing, Cyanosis Skin: No Rash or Ulcers, No Nodules or Sclerosis Neurological: Alert and Oriented x 3, NL Sensation, NL Muscle Strength and Tone Lines/Tubes/Other Access: Clean, Dry and Intact Shaikh - draining yellow urine with noted sedement, Clean, Dry and Intact Peripheral IV Nutrition: Taking PO's Result Diagrams: 02/03/17 11:06 02/03/17 11:06 Additional Lab and Data: Lab Results 02/03/17 02/03/17 02/03/17 Range/Units 01:45 01:45 01:45 WBC 18.0 H (3.5-10.8) 10^3/ul RBC 3.89 L (4.0-5.4) 10^6/ul Hgb 12.0 L (14.0-18.0) g/dl Hct 36 L (42-52) % MCV 93 (80-94) fL MCH 31 (27-31) pg MCHC 33 (31-36) g/dl RDW 14 (10.5-15) % Plt Count 276 (150-450) 10^3/ul MPV 7 L (7.4-10.4) um3 Neut % (Auto) 88.1 H (38-83) % Lymph % (Auto) 4.0 L (25-47) % Jerauld % (Auto) 6.6 (1-9) % Eos % (Auto) 0.9 (0-6) % Baso % (Auto) 0.4 (0-2) % Absolute Neuts (auto) 15.9 H (1.5-7.7) 10^3/ul Absolute Lymphs (auto) 0.7 L (1.0-4.8) 10^3/ul Absolute Monos (auto) 1.2 H (0-0.8) 10^3/ul Absolute Eos (auto) 0.2 (0-0.6) 10^3/ul Absolute Basos (auto) 0.1 (0-0.2) 10^3/ul Absolute Nucleated RBC 0 10^3/ul Nucleated RBC % 0 INR (Anticoag Therapy) 0.97 (0.89-1.11) APTT 31.5 (26.0-36.3) seconds Sodium 136 (133-145) mmol/L Potassium 5.4 H (3.5-5.0) mmol/L Chloride 103 (101-111) mmol/L Carbon Dioxide 23 (22-32) mmol/L Anion Gap 10 (2-11) mmol/L BUN 56 H (6-24) mg/dL Creatinine 1.59 H (0.67-1.17) mg/dL Est GFR ( Amer) 54.3 (>60) Est GFR (Non-Af Amer) 42.2 (>60) BUN/Creatinine Ratio 35.2 H (8-20) Glucose 152 H (70-100) mg/dL Lactic Acid (0.5-2.0) mmol/L Calcium 9.5 (8.6-10.3) mg/dL Total Bilirubin 0.40 (0.2-1.0) mg/dL AST 13 (13-39) U/L ALT 9 (7-52) U/L Alkaline Phosphatase 84 (34-104) U/L Troponin I 0.00 (<0.04) ng/mL C-Reactive Protein 33.10 H (< 5.00) mg/L Total Protein 7.2 (6.4-8.9) g/dL Albumin 4.5 (3.2-5.2) g/dL Globulin 2.7 (2-4) g/dL Albumin/Globulin Ratio 1.7 (1-3) Lipase 10 L (11.0-82.0) U/L Urine Color Urine Appearance Urine pH (5-9) Ur Specific Vista (1.010-1.030) Urine Protein (Negative) Urine Ketones (Negative) Urine Blood (Negative) Urine Nitrate (Negative) Urine Bilirubin (Negative) Urine Urobilinogen (Negative) Ur Leukocyte Esterase (Negative) Urine WBC (Auto) (Absent) Urine RBC (Auto) (Absent) Urine Bacteria (Absent) Urine Glucose (Negative) 02/03/17 02/03/17 Range/Units 01:45 02:20 WBC (3.5-10.8) 10^3/ul RBC (4.0-5.4) 10^6/ul Hgb (14.0-18.0) g/dl Hct (42-52) % MCV (80-94) fL MCH (27-31) pg MCHC (31-36) g/dl RDW (10.5-15) % Plt Count (150-450) 10^3/ul MPV (7.4-10.4) um3 Neut % (Auto) (38-83) % Lymph % (Auto) (25-47) % Jerauld % (Auto) (1-9) % Eos % (Auto) (0-6) % Baso % (Auto) (0-2) % Absolute Neuts (auto) (1.5-7.7) 10^3/ul Absolute Lymphs (auto) (1.0-4.8) 10^3/ul Absolute Monos (auto) (0-0.8) 10^3/ul Absolute Eos (auto) (0-0.6) 10^3/ul Absolute Basos (auto) (0-0.2) 10^3/ul Absolute Nucleated RBC 10^3/ul Nucleated RBC % INR (Anticoag Therapy) (0.89-1.11) APTT (26.0-36.3) seconds Sodium (133-145) mmol/L Potassium (3.5-5.0) mmol/L Chloride (101-111) mmol/L Carbon Dioxide (22-32) mmol/L Anion Gap (2-11) mmol/L BUN (6-24) mg/dL Creatinine (0.67-1.17) mg/dL Est GFR ( Amer) (>60) Est GFR (Non-Af Amer) (>60) BUN/Creatinine Ratio (8-20) Glucose (70-100) mg/dL Lactic Acid 2.3 H* (0.5-2.0) mmol/L Calcium (8.6-10.3) mg/dL Total Bilirubin (0.2-1.0) mg/dL AST (13-39) U/L ALT (7-52) U/L Alkaline Phosphatase (34-104) U/L Troponin I (<0.04) ng/mL C-Reactive Protein (< 5.00) mg/L Total Protein (6.4-8.9) g/dL Albumin (3.2-5.2) g/dL Globulin (2-4) g/dL Albumin/Globulin Ratio (1-3) Lipase (11.0-82.0) U/L Urine Color Yellow Urine Appearance Cloudy Urine pH 5.0 (5-9) Ur Specific Vista 1.014 (1.010-1.030) Urine Protein Negative (Negative) Urine Ketones Negative (Negative) Urine Blood Negative (Negative) Urine Nitrate Positive H (Negative) Urine Bilirubin Negative (Negative) Urine Urobilinogen Negative (Negative) Ur Leukocyte Esterase 3+ H (Negative) Urine WBC (Auto) 3+(>20/hpf) H (Absent) Urine RBC (Auto) 1+(3-5/hpf) H (Absent) Urine Bacteria 1+ H (Absent) Urine Glucose Negative (Negative) Assess/Plan/Problems-Billing Assessment: 81 yo male with a PMH of Parkinsons disease, BPH with chronic indwelling shaikh, HTN, PMR and hx of vertigo who presented to the ER on 02/02 with c/o confusion and rigors. - Patient Problems (1) Sepsis Comment: suspect urine source qSOFA score is 2, making sepsis likely. Met Severe Sepsis criteria on admission Clinically improving. Confusion resolved. Lactic acid trending down, recheck in am. Decrease IVF Urine and blood cx pending, continue zosyn. check labs in am. (2) HTN (hypertension) Comment: Stable at this time. Continue home metoprolol - hold HCTZ, lisinopril, norvasc. (3) Parkinson disease Comment: Continue home Sinemet. (4) Acute on chronic renal failure Comment: a little above baseline, stable. Hold HCTZ, lisinopril. Recheck function in am, if not improving check renal ultrasound. (5) Full code status (6) DVT prophylaxis Comment: SQ Heparin Status and Disposition: inpatient LOS > 2 days
[2017-02-04] MEDS: Carbidopa/Levodop 10/100 MG TAB(*) PO SCH ×13 (01:06→23:45)
[2017-02-04] MEDS: oxyCODONE/Acetamin 5/325 MG* TAB PO PRN ×5 (03:12→23:07)
[2017-02-04] MEDS: Enoxaparin(*) 30 MG/0.3 ML SYR SUBCUT SCH (05:21)
[2017-02-04] MEDS: ZOSYN 3.375 GM Q8H per EXTENDED INFUSION IVPB SCH ×6 (05:27→22:59)
[2017-02-04] MEDS: Clopidogrel TAB* 75 MG PO SCH (08:16)
[2017-02-04] MEDS: oxyCODONE TAB* 5 MG TAB PO PRN ×3 (08:16→19:00)
[2017-02-04] MEDS: Metoprolol Succinate XL TAB* 50 MG PO SCH (08:16)
--- NOTE | 2017-02-04 08:48 | PN ---
Subjective Date of Service: 02/04/17 Interval History: Patient and seen and examined at bedside. Patient states he feels better. Has been out of bed to chair but has not ambulated yet. Lives at home with . Per nursing was close to 2 assist out of bed. Afebrile. Family History: Unchanged from Admission Social History: Unchanged from Admission Past Medical History: Unchanged from Admission Objective Active Medications: Carbidopa/Levodopa (Sinemet 10/100 Tab(*)) 0.5 tab PO Q2H [facility] Clopidogrel Bisulfate (Plavix Tab*) 75 mg PO DAILY [facility] Enoxaparin Sodium (Lovenox(*)) 30 mg SUBCUT Q24H [facility] Piperacillin Sod/Tazobactam (Sod 3.375 gm/ Sodium Chloride) 100 mls @ 25 mls/ hr IVPB Q8H [facility] Metoprolol Succinate (Toprol Xl Tab*) 50 mg PO DAILY [facility] Oxycodone HCl (Roxycodone Tab*) 5 mg PO Q4H PRN Oxycodone/Acetaminophen (Percocet 5/325 Tab*) 1 tab PO Q4H PRN Pharmacy Consult (Zosyn Per Pharmacy*) 1 note FOLLOW UP .ZOSYN PER PHARMACY [facility] 02/04/17 02/04/17 02/04/17 07:59 08:03 08:16 Temperature Pulse Rate 66 Respiratory 18 Rate Blood Pressure 150/51 143/51 (mmHg) O2 Sat by Pulse 93 Oximetry Oxygen Devices in Use Now: None Appearance: siitng up in bed, NAD Eyes: No Scleral Icterus, PERRLA Ears/Nose/Mouth/Throat: NL Teeth, Lips, Gums Neck: NL Appearance and Movements; NL JVP Respiratory: Symmetrical Chest Expansion and Respiratory Effort, Clear to Auscultation Cardiovascular: NL Sounds; No Murmurs; No JVD, RRR Abdominal: NL Sounds; No Tenderness; No Distention Extremities: No Edema Skin: No Rash or Ulcers Neurological: Alert and Oriented x 3, NL Muscle Strength and Tone Lines/Tubes/Other Access: Clean, Dry and Intact Peripheral IV Result Diagrams: 02/03/17 11:06 02/03/17 11:06 Assess/Plan/Problems-Billing 81 yo male with a PMH of Parkinsons disease, BPH with chronic indwelling shaikh, HTN, PMR and hx of vertigo who presented to the ER on 02/02 with c/o confusion and rigors found to have a UTI. - Patient Problems (1) UTI (urinary tract infection) Comment: Shaikh changed on admission. Continue IV Zosyn and await cultures. Patient has shaikh changed [id number] in Aramis's office. (2) Sepsis Comment: Present on admission secondary to UTI. Blood Cx negative. Lactic acid trending down. D/C IVF. Continue IV Zosyn awaiting cultures. (3) Acute on chronic renal failure Current Visit: Yes Status: Acute Code(s): N17.9 - ACUTE KIDNEY FAILURE, UNSPECIFIED; N18.9 - CHRONIC KIDNEY DISEASE, UNSPECIFIED SNOMED Code(s): 458286073 Comment: Cr stable at 1.5. This could be a new baseline for patient. Repeat Cr. pending. Hold Lisonpril and HCTZ. (4) HTN (hypertension) Comment: Stable at this time. Restart norvasc. Continue metoprolol. HCTZ and Lisinopril on hold. (5) Parkinson disease Comment: Continue home Sinemet. (6) DVT prophylaxis Comment: SQ Heparin (7) Full code status Status and Disposition: Inpatient for UTI. PT eval to determine if he can return home at discharge - likely tomorrow.
[2017-02-04 08:57] LABS: Comments Flag Yes; Hematocrit 28 % (42-52); Hemoglobin 9.4 g/dl (14.0-18.0); Mean Corpuscular HGB Conc 34 g/dl (31-36); Mean Corpuscular Hemoglobin 31 pg (27-31); Mean Corpuscular Volume 93 fL (80-94); Mean Platelet Volume 7 um3 (7.4-10.4); Red Blood Count 3.04 10^6/ul (4.0-5.4); Red Cell Distribution Width 14 % (10.5-15)
[2017-02-04 09:09] LABS: Calcium 8.7 mg/dL (8.6-10.3); EGFR African American 67.9 (>60); EGFR Non-African American 52.8 (>60); Potassium 4.2 mmol/L (3.5-5.0)
[2017-02-05] MEDS: Carbidopa/Levodop 10/100 MG TAB(*) PO SCH ×11 (05:10→23:00)
[2017-02-05] MEDS: Enoxaparin(*) 30 MG/0.3 ML SYR SUBCUT SCH (05:32)
[2017-02-05] MEDS: oxyCODONE/Acetamin 5/325 MG* TAB PO PRN ×4 (05:37→23:00)
[2017-02-05] MEDS: ZOSYN 3.375 GM Q8H per EXTENDED INFUSION IVPB SCH ×6 (05:51→20:40)
[2017-02-05] MEDS: Clopidogrel TAB* 75 MG PO SCH (08:08)
[2017-02-05] MEDS: Metoprolol Succinate XL TAB* 50 MG PO SCH (08:08)
--- NOTE | 2017-02-05 08:27 | PN ---
Subjective Date of Service: 02/05/17 Interval History: Patient seen and examined at bedside. Patient states he feels he is ready to go home. He says he has gotten out of bed with only one person and stats he think his can help him at home. Denies fevers, chills. Taking POs and moving bowels without difficulty. Family History: Unchanged from Admission Social History: Unchanged from Admission Past Medical History: Unchanged from Admission Objective Active Medications: Carbidopa/Levodopa (Sinemet 10/100 Tab(*)) 0.5 tab PO Q2H [facility] Clopidogrel Bisulfate (Plavix Tab*) 75 mg PO DAILY [facility] Enoxaparin Sodium (Lovenox(*)) 30 mg SUBCUT Q24H [facility] Piperacillin Sod/Tazobactam (Sod 3.375 gm/ Sodium Chloride) 100 mls @ 25 mls/ hr IVPB Q8H [facility] Metoprolol Succinate (Toprol Xl Tab*) 50 mg PO DAILY [facility] Oxycodone HCl (Roxycodone Tab*) 5 mg PO Q4H PRN Oxycodone/Acetaminophen (Percocet 5/325 Tab*) 1 tab PO Q4H PRN Pharmacy Consult (Zosyn Per Pharmacy*) 1 note FOLLOW UP .ZOSYN PER PHARMACY [facility] 02/05/17 02/05/17 06:34 07:37 Temperature 98.6 F Pulse Rate 61 Respiratory 16 18 Rate Blood Pressure 142/51 (mmHg) O2 Sat by Pulse 95 Oximetry Oxygen Devices in Use Now: None Appearance: sitting up in bed, NAD Eyes: No Scleral Icterus, PERRLA Ears/Nose/Mouth/Throat: NL Teeth, Lips, Gums Neck: NL Appearance and Movements; NL JVP Respiratory: Symmetrical Chest Expansion and Respiratory Effort, Clear to Auscultation Cardiovascular: NL Sounds; No Murmurs; No JVD, RRR Abdominal: NL Sounds; No Tenderness; No Distention Extremities: No Edema Skin: No Rash or Ulcers Neurological: Alert and Oriented x 3, NL Muscle Strength and Tone Lines/Tubes/Other Access: Clean, Dry and Intact Peripheral IV Nutrition: Taking PO's Result Diagrams: 02/04/17 08:10 02/04/17 08:09 Assess/Plan/Problems-Billing 81 yo male with a PMH of Parkinsons disease, BPH with chronic indwelling shaikh, HTN, PMR and hx of vertigo who presented to the ER on 02/02 with c/o confusion and rigors found to have a UTI. - Patient Problems (1) UTI (urinary tract infection) Comment: Cultures growing E. Coli and Pseudomonas. Await final sensitivities. Patient has shaikh changed [id number] in Aramis's office. (2) Sepsis Comment: Present on admission secondary to UTI. Now resolving. Leukocytosis trending down. (3) Acute on chronic renal failure Comment: Cr stable at 1.3. Continue to hold Lisonpril and HCTZ. (4) HTN (hypertension) Comment: Stable at this time. Restart 5mg norvasc. Continue metoprolol. HCTZ and Lisinopril on hold. (5) Parkinson disease Comment: Continue home Sinemet. (6) DVT prophylaxis Comment: SQ Heparin (7) Full code status Status and Disposition: Inpatient for UTI. PMRU vs STR as patient has OT and PT needs.
[2017-02-05] MEDS: amLODIPine TAB* 5 MG PO SCH (09:08)
[2017-02-05 09:23] LABS: Hematocrit 27 % (42-52); Hemoglobin 9.2 g/dl (14.0-18.0); Mean Corpuscular HGB Conc 34 g/dl (31-36); Mean Corpuscular Hemoglobin 31 pg (27-31); Mean Corpuscular Volume 92 fL (80-94); Mean Platelet Volume 7 um3 (7.4-10.4); Red Blood Count 2.99 10^6/ul (4.0-5.4); Red Cell Distribution Width 14 % (10.5-15)
[2017-02-05 09:50] LABS: BUN/Creatinine Ratio 22.8 (8-20); Calcium 8.7 mg/dL (8.6-10.3); EGFR African American 79.7 (>60); Potassium 4.1 mmol/L (3.5-5.0)
[2017-02-06] MEDS: oxyCODONE TAB* 5 MG TAB PO PRN ×4 (01:02→23:47)
[2017-02-06] MEDS: Carbidopa/Levodop 10/100 MG TAB(*) PO SCH ×12 (01:03→22:14)
[2017-02-06] MEDS: CMCS Melatonin (NF) 3 MG TAB PO PRN ×2 (01:03→22:44)
[2017-02-06] MEDS: oxyCODONE/Acetamin 5/325 MG* TAB PO PRN ×5 (06:27→23:47)
[2017-02-06] MEDS: Enoxaparin(*) 30 MG/0.3 ML SYR SUBCUT SCH (06:29)
[2017-02-06] MEDS: ZOSYN 3.375 GM Q8H per EXTENDED INFUSION IVPB SCH ×6 (06:32→22:40)
[2017-02-06] MEDS: Clopidogrel TAB* 75 MG PO SCH (09:43)
[2017-02-06] MEDS: Metoprolol Succinate XL TAB* 50 MG PO SCH (09:43)
[2017-02-06] MEDS: amLODIPine TAB* 5 MG PO SCH (09:44)
--- NOTE | 2017-02-06 12:10 | CONSULT ---
Consult Consult: Consultation for Evaluation of Medical Decision Making Capacity. S: 81 y.o. white male with a history of Parkinson's Disease admitted for acute UTI is approaching medical clearance and primary team feels he would benefit from subacute rehab, however, the patient is declining this, stating his preference to return home. Staff reports indicate that he had been confused and encephalopathic, related to the active infection, but that his cognition has improved. They remain concerned that the patient is not physically strong enough to be home. He lacks adequate support in the home setting, as his has physical limitations as well and aides are not available for significant periods of the week. On exam the patient is calm and cooperative. He is aware that the primary team is recommending rehab and he is able to articulate the risks of declining their treatment recommendation. "Oh, a lot of bad things could happen. It would be tough to get around. I'm not at full strength yet. I could fall." Despite this understanding, he insists that he could make due. O: Patient scores 28/30 on MMSE missing 2 points for delayed recall. A/P: Capacity: Psychiatry deems that this patient currently does have capacity to make informed medical decisions. Please note that capacity is not a static aptitude and can change at any point, depending on clinical variables. Please feel free to re-consult if there are changes in the patient's presentation.
--- NOTE | 2017-02-06 12:58 | PN ---
Subjective Date of Service: 02/06/17 Interval History: Patient seen and examined at bedside. Patient states that his mobility is improving. Patient states that he rarely plugs up his catheter and responds that he does do it every now and then. Afebrile. Family History: Unchanged from Admission Social History: Unchanged from Admission Past Medical History: Unchanged from Admission Objective Active Medications: Amlodipine Besylate (Norvasc Tab*) 5 mg PO DAILY [facility] Carbidopa/Levodopa (Sinemet 10/100 Tab(*)) 0.5 tab PO Q2H [facility] Clopidogrel Bisulfate (Plavix Tab*) 75 mg PO DAILY [facility] Enoxaparin Sodium (Lovenox(*)) 30 mg SUBCUT Q24H [facility] Piperacillin Sod/Tazobactam (Sod 3.375 gm/ Sodium Chloride) 100 mls @ 25 mls/ hr IVPB Q8H [facility] Melatonin (Melatonin (Nf)) 3 mg PO BEDTIME PRN; Protocol Metoprolol Succinate (Toprol Xl Tab*) 50 mg PO DAILY [facility] Oxycodone HCl (Roxycodone Tab*) 5 mg PO Q4H PRN Oxycodone/Acetaminophen (Percocet 5/325 Tab*) 1 tab PO Q4H PRN Pharmacy Consult (Zosyn Per Pharmacy*) 1 note FOLLOW UP .ZOSYN PER PHARMACY [facility] 02/06/17 02/06/17 02/06/17 07:26 08:00 08:27 Temperature Pulse Rate 55 Respiratory 16 16 18 Rate Blood Pressure 151/59 (mmHg) O2 Sat by Pulse 93 Oximetry Oxygen Devices in Use Now: None Appearance: sitting up in bed, NAD Eyes: No Scleral Icterus, PERRLA Ears/Nose/Mouth/Throat: NL Teeth, Lips, Gums Neck: NL Appearance and Movements; NL JVP Respiratory: Symmetrical Chest Expansion and Respiratory Effort, Clear to Auscultation Cardiovascular: NL Sounds; No Murmurs; No JVD, RRR Abdominal: NL Sounds; No Tenderness; No Distention Extremities: No Edema Skin: No Rash or Ulcers Neurological: Alert and Oriented x 3, NL Muscle Strength and Tone Lines/Tubes/Other Access: Clean, Dry and Intact Peripheral IV Nutrition: Taking PO's Result Diagrams: 02/05/17 08:21 02/05/17 08:21 Assess/Plan/Problems-Billing 81 yo male with a PMH of Parkinsons disease, BPH with chronic indwelling shaikh, HTN, PMR and hx of vertigo who presented to the ER on 02/02 with c/o confusion and rigors found to have a UTI. - Patient Problems (1) UTI (urinary tract infection) Comment: Cultures growing E. Coli and Pseudomonas only sensitive both to IV Zosyn. Will continue IV Zosyn for 7 day course - to complete with last dose Saturday evening. (2) Sepsis Comment: Present on admission secondary to UTI. Now resolved. (3) Acute on chronic renal failure Comment: Cr back down to 1.1. Restart Lisinopril and HCTZ. (4) HTN (hypertension) Comment: Stable at this time. Continue metoprolol and restart HCTZ and Lisinopril. (5) Parkinson disease Comment: Continue home Sinemet. (6) DVT prophylaxis Comment: SQ Heparin (7) Full code status Status and Disposition: Inpatient for UTI. Patient has clear PT needs and now that he needs IV Abx until Saturday AM he is agreeable to rehab. Will see if they will take him with IV Zosyn. Continue mobility and PT.
--- NOTE | 2017-02-06 13:25 | CONS ---
CONSULTATION REPORT: DATE OF CONSULT: 02/06/17 REQUESTING PROVIDER: Nikky June NP CONSULTING SERVICE: Infectious Disease. REASON FOR CONSULT: Sepsis due to cystitis. IMPRESSION: 1. Sepsis present on admission. 2. Infection of chronic urinary catheter and cystitis due to ESBL-producing Escherichia coli and ps eudomonas. Each present 1000 colonies, improving on Zosyn. 3. 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 4. Urinary tract infection in the past. 5. Parkinson's disease. 6. Encephalopathy was present on admission as well and resolved. RECOMMENDATION: Continue Zosyn to complete 7 days of IV antibiotics as there are no oral options fo r these bacteria. I discussed with the patient's family that there are not good oral options for lomeli ppression either given the resistance profile of the pseudomonas isolate. However, we assume the ES BL organism is the main issue as this has grown a number of times in the past, then a consideration would be suppressive doxycycline for some period of time at 100 mg twice daily. HISTORY OF PRESENT ILLNESS: This is a 81-year-old male with a chronic Vance catheter, admitted with sepsis. His family found him to be not making sense. He was having fevers and was weaker, could n ot get around the house. He was brought to the emergency room on 02/03/17. He was febrile at 38.2, he had leukocytosis of 18,000. Urinalysis was sent, which showed blood nitrites, leukocyte esteras e, urine culture with results as above. His Vance catheter was changed, last that was done was abou t 2 weeks ago. He has been on Zosyn while he has been here. His energy, weakness, and balance have all improved. His fevers have resolved. Last infection was in November due to E. coli and in er 2015, he had admission for the same. PAST MEDICAL HISTORY: 1. Recurrent urinary tract infection. 2. 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 3. Status post transurethral resection of the prostate. 4. Parkinson's disease. 5. Hypertension. 6. Polymyalgia rheumatica. 7. Osteoarthritis. 8. Vertigo. MEDICATIONS: 1. Sinemet. 2. Enoxaparin. 3. Plavix. 4. Metoprolol. 5. Zosyn 3.375 g IV every 8 hours by extended infusion. 6. Amlodipine. 7. Oxycodone. ALLERGIES: ASPIRIN, ALLOPURINOL, ALPHA LEON. FAMILY HISTORY: Father from [place] at age of 50. Mother from lung cancer. SOCIAL HISTORY: He lives in [place] with his , non-smoker. He is retired from the [employer]. REVIEW OF SYSTEMS: [id number] review of systems was negative except as noted above. PHYSICAL EXAM: Vital Signs: Temperature 36.6, heart rate 55, respiratory rate 16, blood pressure 1 50/60, O2 sat 93% on room air. In general, he is awake, not in distress. Neurologic: He is orient ed x3. Follows all commands. HEENT: There is no conjunctival hemorrhage. Oropharynx is without l esions. Neck: Supple without nuchal rigidity. Lymph Nodes: There is no inguinal, axillary, or ep itrochlear lymphadenopathy. Heart has regular rate and rhythm without murmurs, rubs, or gallops. L ungs are clear to auscultation bilaterally. Abdomen is soft, nontender, and nondistended. There ar e bowel sounds present. Skin: There is no rash or splinter hemorrhages. Musculoskeletal: There i s no spine tenderness to palpation. Genitourinary: There is a Vance catheter present. LABORATORY DA TA: White blood count 16, hemoglobin 9.2, platelets 206. Creatinine is 1.1, down from 1.6. The bl ood cultures are negative. Please see impression and recommendations as outlined above, which I have discussed with Nikky June NP. [id number]/[facility] #: [id number]
[2017-02-07] MEDS: Carbidopa/Levodop 10/100 MG TAB(*) PO SCH ×12 (01:50→23:34)
[2017-02-07] MEDS: oxyCODONE/Acetamin 5/325 MG* TAB PO PRN ×5 (05:51→21:45)
[2017-02-07] MEDS: Enoxaparin(*) 30 MG/0.3 ML SYR SUBCUT SCH (05:53)
[2017-02-07] MEDS: ZOSYN 3.375 GM Q8H per EXTENDED INFUSION IVPB SCH ×6 (05:53→21:53)
[2017-02-07 07:23] LABS: Hematocrit 28 % (42-52); Hemoglobin 9.7 g/dl (14.0-18.0); Mean Corpuscular HGB Conc 35 g/dl (31-36); Mean Corpuscular Hemoglobin 31 pg (27-31); Mean Corpuscular Volume 91 fL (80-94); Mean Platelet Volume 7 um3 (7.4-10.4); Red Blood Count 3.11 10^6/ul (4.0-5.4); Red Cell Distribution Width 13 % (10.5-15); White Blood Count 8.1 10^3/ul (3.5-10.8)
[2017-02-07] MEDS: oxyCODONE TAB* 5 MG TAB PO PRN (08:52)
[2017-02-07] MEDS: Clopidogrel TAB* 75 MG PO SCH (08:53)
[2017-02-07] MEDS: Metoprolol Succinate XL TAB* 50 MG PO SCH (08:58)
[2017-02-07] MEDS: amLODIPine TAB* 5 MG PO SCH (08:58)
--- NOTE | 2017-02-07 12:05 | PN ---
Subjective Date of Service: 02/07/17 Interval History: This is a 81 yo male with Parkinson's and chronic indwelling Shaikh who presented with AMS, admitted for sepsis secondary to UTI. Cx grew Pseudomonas and ESBL EColi, ID recommendation includes Zosyn x 7d. Patient reports that he is feeling well. He is anxious to return home. He denies abd pain, n/v. No CP or SOB. Objective Active Medications: Amlodipine Besylate (Norvasc Tab*) 5 mg PO DAILY [facility] Last Admin: 02/07/17 08:58 Dose: 5 mg Carbidopa/Levodopa (Sinemet Tab(*)) 0.5 tab PO Q2H [facility] Last Admin: 02/07/17 10:40 Dose: 0.5 tab Clopidogrel Bisulfate (Plavix Tab*) 75 mg PO DAILY [facility] Last Admin: 02/07/17 08:53 Dose: 75 mg Enoxaparin Sodium (Lovenox(*)) 30 mg SUBCUT Q24H [facility] Last Admin: 02/07/17 05:53 Dose: 30 mg Piperacillin Sod/Tazobactam (Sod 3.375 gm/ Sodium Chloride) 100 mls @ 25 mls/ hr IVPB Q8H [facility] Last Admin: 02/07/17 05:53 Dose: 25 mls/hr Melatonin (Melatonin (Nf)) 3 mg PO BEDTIME PRN; Protocol PRN Reason: Sleep Last Admin: 02/06/17 22:44 Dose: 3 mg Metoprolol Succinate (Toprol Xl Tab*) 50 mg PO DAILY [facility] Last Admin: 02/07/17 08:58 Dose: 50 mg Oxycodone HCl (Roxycodone Tab*) 5 mg PO Q4H PRN PRN Reason: PAIN Last Admin: 02/06/17 23:47 Dose: 5 mg Oxycodone/Acetaminophen (Percocet 5/325 Tab*) 1 tab PO Q4H PRN PRN Reason: PAIN Last Admin: 02/07/17 09:58 Dose: 1 tab Pharmacy Consult (Zosyn Per Pharmacy*) 1 note FOLLOW UP .ZOSYN PER PHARMACY [facility] Vital Signs: Temp Pulse Resp BP Pulse Ox 97.2 F 58 16 176/64 100 02/06/17 23:21 02/07/17 08:59 02/07/17 11:58 02/07/17 08:59 02/07/17 08:59 Oxygen Devices in Use Now: None Appearance: Relatively well appearing elderly male in NAD. Accompanied by family. Respiratory: Symmetrical Chest Expansion and Respiratory Effort, Clear to Auscultation Cardiovascular: NL Sounds; No Murmurs; No JVD, RRR Abdominal: NL Sounds; No Tenderness; No Distention Extremities: No Edema Skin: No Rash or Ulcers Neurological: Alert and Oriented x 3 Result Diagrams: 02/07/17 06:44 02/05/17 08:21 Additional Lab and Data: . Assess/Plan/Problems-Billing 81 yo male with a PMH of Parkinsons disease, BPH with chronic indwelling shaikh, HTN, PMR and hx of vertigo who presented to the ER on 02/02 with c/o confusion and rigors found to have a UTI. - Patient Problems (1) Sepsis Comment: Met severe sepsis criteria at admission Secondary to UTI. Now resolved. (2) UTI (urinary tract infection) Comment: Cultures growing E. Coli and Pseudomonas only sensitive both to IV Zosyn, no oral options Appreciate ID input Will continue IV Zosyn for 7 day course - (thru 02/09) (3) Acute on chronic renal failure Comment: Secondary to sepsis Cr back down to near baseline Lisinopril and HCTZ resumed (4) HTN (hypertension) Comment: Noted HTN this am, but avg normotensive Continue metoprolol and restart HCTZ and Lisinopril. (5) Parkinson disease Comment: Continue home Sinemet. Gait instability at baseline (6) DVT prophylaxis Comment: SQ Lovenox (7) Full code status Status and Disposition: Inpatient for UTI. Complete 7d Zosyn, plan for dc 02/10
[2017-02-08] MEDS: Carbidopa/Levodop 10/100 MG TAB(*) PO SCH ×11 (01:23→21:39)
[2017-02-08] MEDS: CMCS Melatonin (NF) 3 MG TAB PO PRN (02:59)
[2017-02-08] MEDS: oxyCODONE/Acetamin 5/325 MG* TAB PO PRN ×5 (05:24→21:40)
[2017-02-08] MEDS: ZOSYN 3.375 GM Q8H per EXTENDED INFUSION IVPB SCH ×6 (05:24→21:00)
[2017-02-08] MEDS: Enoxaparin(*) 30 MG/0.3 ML SYR SUBCUT SCH (05:25)
[2017-02-08] MEDS ORDERED: diPHENhydraMINE PO* 25 MG PO ONE (06:35)
[2017-02-08] MEDS: Clopidogrel TAB* 75 MG PO SCH (09:25)
[2017-02-08] MEDS: amLODIPine TAB* 5 MG PO SCH (09:47)
[2017-02-08] MEDS: Metoprolol Succinate XL TAB* 50 MG PO SCH (09:47)
[2017-02-08] MEDS: Polyethylene Glycol 3350* 17 GM PACKET PO PRN (13:22)
--- NOTE | 2017-02-08 14:41 | PN ---
Subjective Date of Service: 02/08/17 Interval History: Patient offers no new acute complaints today. Still anxious to leave the hospital. Objective Active Medications: Amlodipine Besylate (Norvasc Tab*) 5 mg PO DAILY [facility] Last Admin: 02/08/17 09:47 Dose: Not Given Carbidopa/Levodopa (Sinemet 10/100 Tab(*)) 0.5 tab PO Q2H [facility] Last Admin: 02/08/17 13:22 Dose: 0.5 tab Clopidogrel Bisulfate (Plavix Tab*) 75 mg PO DAILY [facility] Last Admin: 02/08/17 09:25 Dose: 75 mg Enoxaparin Sodium (Lovenox(*)) 30 mg SUBCUT Q24H [facility] Last Admin: 02/08/17 05:25 Dose: 30 mg Piperacillin Sod/Tazobactam (Sod 3.375 gm/ Sodium Chloride) 100 mls @ 25 mls/ hr IVPB Q8H [facility] Last Admin: 02/08/17 13:22 Dose: 25 mls/hr Melatonin (Melatonin (Nf)) 3 mg PO BEDTIME PRN; Protocol PRN Reason: Sleep Last Admin: 02/08/17 02:59 Dose: 3 mg Metoprolol Succinate (Toprol Xl Tab*) 50 mg PO DAILY [facility] Last Admin: 02/08/17 09:47 Dose: Not Given Oxycodone HCl (Roxycodone Tab*) 5 mg PO Q4H PRN PRN Reason: PAIN Last Admin: 02/06/17 23:47 Dose: 5 mg Oxycodone/Acetaminophen (Percocet 5/325 Tab*) 1 tab PO Q4H PRN PRN Reason: PAIN Last Admin: 02/08/17 13:55 Dose: 1 tab Pharmacy Consult (Zosyn Per Pharmacy*) 1 note FOLLOW UP .ZOSYN PER [facility]ACY [facility] Polyethylene Glycol/Electrolytes (Miralax*) 17 gm PO DAILY PRN PRN Reason: CONSTIPATION Last Admin: 02/08/17 13:22 Dose: 17 gm Vital Signs: Temp Pulse Resp BP Pulse Ox 98.2 F 52 10 139/58 97 02/08/17 11:23 02/08/17 11:23 02/08/17 13:55 02/08/17 11:23 02/08/17 11:23 Oxygen Devices in Use Now: None Appearance: Well appearing elderly gentleman in NAD Respiratory: Symmetrical Chest Expansion and Respiratory Effort, Clear to Auscultation Cardiovascular: NL Sounds; No Murmurs; No JVD, RRR Extremities: No Edema Skin: No Rash or Ulcers Neurological: Alert and Oriented x 3 Result Diagrams: 02/07/17 06:44 02/05/17 08:21 Additional Lab and Data: . Assess/Plan/Problems-Billing 81 yo male with a PMH of Parkinsons disease, BPH with chronic indwelling shaikh, HTN, PMR and hx of vertigo who presented to the ER on 02/02 with c/o confusion and rigors found to have a UTI. - Patient Problems (1) Sepsis Comment: Met severe sepsis criteria at admission Secondary to UTI. Now resolved. (2) UTI (urinary tract infection) Comment: Cultures growing E. Coli and Pseudomonas only sensitive both to IV Zosyn, no oral options Appreciate ID input Will continue IV Zosyn for 7 day course - (thru 02/09) (3) Acute on chronic renal failure Comment: Secondary to sepsis Cr back down to near baseline Lisinopril and HCTZ resumed (4) HTN (hypertension) Comment: Normotensive Continue metoprolol and restart HCTZ and Lisinopril. (5) Parkinson disease Comment: Continue home Sinemet. Gait instability at baseline (6) DVT prophylaxis Comment: SQ Lovenox (7) Full code status Status and Disposition: Inpatient for UTI. Complete 7d Zosyn, plan for dc 02/10
[2017-02-08] MEDS: oxyCODONE TAB* 5 MG TAB PO PRN (17:55)
[2017-02-09] MEDS: Carbidopa/Levodop 10/100 MG TAB(*) PO SCH ×12 (00:31→22:08)
[2017-02-09] MEDS: CMCS Melatonin (NF) 3 MG TAB PO PRN ×2 (00:31→19:59)
[2017-02-09] MEDS: ZOSYN 3.375 GM Q8H per EXTENDED INFUSION IVPB SCH ×6 (05:15→22:07)
[2017-02-09] MEDS: Enoxaparin(*) 30 MG/0.3 ML SYR SUBCUT SCH (05:15)
[2017-02-09] MEDS: oxyCODONE/Acetamin 5/325 MG* TAB PO PRN ×5 (05:30→22:12)
[2017-02-09] MEDS: amLODIPine TAB* 5 MG PO SCH (09:17)
[2017-02-09] MEDS: oxyCODONE TAB* 5 MG TAB PO PRN ×2 (09:17→13:40)
[2017-02-09] MEDS: Clopidogrel TAB* 75 MG PO SCH (09:17)
[2017-02-09] MEDS: Metoprolol Succinate XL TAB* 50 MG PO SCH (09:20)
--- NOTE | 2017-02-09 15:46 | PN ---
Subjective Date of Service: 02/09/17 Interval History: Patient offers no new complaints. No abd pain, n/v, CP, SOB Objective Active Medications: Amlodipine Besylate (Norvasc Tab*) 5 mg PO DAILY [facility] Last Admin: 02/09/17 09:17 Dose: 5 mg Carbidopa/Levodopa (Sinemet 10/100 Tab(*)) 0.5 tab PO Q2H [facility] Last Admin: 02/09/17 15:32 Dose: 0.5 tab Clopidogrel Bisulfate (Plavix Tab*) 75 mg PO DAILY [facility] Last Admin: 02/09/17 09:17 Dose: 75 mg Enoxaparin Sodium (Lovenox(*)) 30 mg SUBCUT Q24H [facility] Last Admin: 02/09/17 05:15 Dose: 30 mg Piperacillin Sod/Tazobactam (Sod 3.375 gm/ Sodium Chloride) 100 mls @ 25 mls/ hr IVPB Q8H [facility] Last Admin: 02/09/17 13:40 Dose: 25 mls/hr Melatonin (Melatonin (Nf)) 3 mg PO BEDTIME PRN; Protocol PRN Reason: Sleep Last Admin: 02/09/17 00:31 Dose: 3 mg Metoprolol Succinate (Toprol Xl Tab*) 50 mg PO DAILY [facility] Last Admin: 02/09/17 09:20 Dose: Not Given Oxycodone HCl (Roxycodone Tab*) 5 mg PO Q4H PRN PRN Reason: PAIN Last Admin: 02/09/17 13:40 Dose: 5 mg Oxycodone/Acetaminophen (Percocet 5/325 Tab*) 1 tab PO Q4H PRN PRN Reason: PAIN Last Admin: 02/09/17 13:39 Dose: 1 tab Pharmacy Consult (Zosyn Per Pharmacy*) 1 note FOLLOW UP .ZOSYN PER PHARMACY [facility] Polyethylene Glycol/Electrolytes (Miralax*) 17 gm PO DAILY PRN PRN Reason: CONSTIPATION Last Admin: 02/08/17 13:22 Dose: 17 gm Vital Signs: Temp Pulse Resp BP Pulse Ox 98.1 F 69 18 187/74 99 02/09/17 15:26 02/09/17 15:26 02/09/17 15:26 02/09/17 15:26 02/09/17 15:26 Oxygen Devices in Use Now: None Appearance: Well appearing, in NAD. Respiratory: Symmetrical Chest Expansion and Respiratory Effort, Clear to Auscultation Cardiovascular: NL Sounds; No Murmurs; No JVD, RRR Abdominal: NL Sounds; No Tenderness; No Distention Extremities: No Edema Skin: No Rash or Ulcers Neurological: Alert and Oriented x 3 Result Diagrams: 02/07/17 06:44 02/05/17 08:21 Additional Lab and Data: . Assess/Plan/Problems-Billing 81 yo male with a PMH of Parkinsons disease, BPH with chronic indwelling shaikh, HTN, PMR and hx of vertigo who presented to the ER on 02/02 with c/o confusion and rigors found to have a UTI. - Patient Problems (1) Sepsis Comment: Met severe sepsis criteria at admission Secondary to UTI. Now resolved. (2) UTI (urinary tract infection) Comment: Cultures growing E. Coli and Pseudomonas only sensitive both to IV Zosyn, no oral options Appreciate ID input Will continue IV Zosyn for 7 day course - (thru 02/09) (3) Acute on chronic renal failure Comment: Secondary to sepsis Cr back down to near baseline Lisinopril and HCTZ resumed (4) HTN (hypertension) Comment: Normotensive Continue metoprolol and restart HCTZ and Lisinopril. (5) Parkinson disease Comment: Continue home Sinemet. Gait instability at baseline (6) DVT prophylaxis Comment: SQ Lovenox (7) Full code status Status and Disposition: Inpatient for UTI. Complete 7d Zosyn, plan for dc 02/10
[2017-02-10] MEDS: Carbidopa/Levodop 10/100 MG TAB(*) PO SCH ×6 (00:18→10:47)
[2017-02-10] MEDS: oxyCODONE/Acetamin 5/325 MG* TAB PO PRN (03:50)
[2017-02-10 06:19] LABS: Hematocrit 29 % (42-52); Hemoglobin 9.9 g/dl (14.0-18.0); Mean Corpuscular HGB Conc 34 g/dl (31-36); Mean Corpuscular Hemoglobin 31 pg (27-31); Mean Corpuscular Volume 92 fL (80-94); Mean Platelet Volume 7 um3 (7.4-10.4); Red Blood Count 3.17 10^6/ul (4.0-5.4); Red Cell Distribution Width 14 % (10.5-15); White Blood Count 9.5 10^3/ul (3.5-10.8)
[2017-02-10 06:21] LABS: Add Diff/Slide Review? Slide Review Added; Comments Flag Yes
[2017-02-10] MEDS: Enoxaparin(*) 30 MG/0.3 ML SYR SUBCUT SCH (06:21)
[2017-02-10 06:32] LABS: BUN/Creatinine Ratio 23.3 (8-20); Calcium 9.1 mg/dL (8.6-10.3); EGFR African American 110.3 (>60); EGFR Non-African American 85.8 (>60); Potassium 4.1 mmol/L (3.5-5.0)
[2017-02-10] MEDS ORDERED: oxyCODONE/Acetamin 5/325 MG* TAB PO PRN (08:13)
[2017-02-10] MEDS ORDERED: oxyCODONE/Acetamin 5/325 MG* TAB ONE (08:29)
[2017-02-10 08:35] VITALS: BP 136/56
[2017-02-10] MEDS: Clopidogrel TAB* 75 MG PO SCH (08:35)
[2017-02-10] MEDS: Metoprolol Succinate XL TAB* 50 MG PO SCH (08:35)
[2017-02-10] MEDS: amLODIPine TAB* 5 MG PO SCH (08:35)
[2017-02-10] MEDS: Polyethylene Glycol 3350* 17 GM PACKET PO PRN (08:48)
--- NOTE | 2017-02-10 10:43 | DS ---
CC: Dr. Carmen; Dr. Gutierrez * DISCHARGE SUMMARY: DATE OF ADMISSION: 02/03/17 DATE OF DISCHARGE: 02/10/17 PRIMARY CARE PROVIDER: Dr. Carmen. CONSULTING INFECTIOUS DISEASE SPECIALIST: Dr. Sergio Markham. PRIMARY UROLOGIST: Dr. Gutierrez. DISCHARGING PROVIDER: LIANNE Maicas SUPERVISING PHYSICIAN: Dr. Prem Hernandez * (DICTATED BY LIANNE MACIAS) PRIMARY DISCHARGE DIAGNOSES: 1. Sepsis secondary to catheter-associated urinary tract infection with ESBL E. coli and quinolone-resistant Pseudomonas. 2. Acute on chronic renal failure secondary to sepsis, resolved. SECONDARY DISCHARGE DIAGNOSES: 1. Hypertension. 2. Parkinson's disease. DISCHARGE MEDICATIONS: 1. Sinemet 10/100 takes 9 tablets daily and generally spread out throughout the day. 2. Plavix 75 mg p.o. daily. 3. Hydrochlorothiazide 25 mg p.o. daily. 4. Lisinopril 10 mg p.o. daily. 5. Meloxicam 15 mg p.o. daily. 6. Metoprolol succinate 50 mg p.o. daily. 7. Amlodipine 10 mg p.o. daily. 8. Percocet 10/325 one tablet p.o. q.4 hours as needed for pain. MEDICATION CHANGES: None. HOSPITAL IMAGIN. Chest x-ray shows no evidence for acute intrathoracic disease. 2. CT of the brain shows mild involutional change, but no acute intracranial process noted. HOSPITAL COURSE: This is a 81-year-old gentleman with Parkinson as well as BPH with a chronic indwelling Vance catheter, who presented to the emergency department with complaints of altered mental status. The patient was noted to be febrile with an initial temperature measured at 100.8 degrees Fahrenheit. He was normotensive to hypertensive with the heart rate in the 90s. DIAGNOSTIC STUDIES/LAB DATA: Initial labs showed a significant leukocytosis with a white blood cell count of 18,000, which eventually peaked at 22,000. He was hyperkalemic with a potassium of 5.4 and noted acute on chronic kidney injury with BUN up to 56, creatinine of 1.59. Lactic acid was elevated at 2.3, which peaked at 3.1 and a CRP was moderately elevated at 33. Urinalysis was positive for nitrites, leuk esterase and bacteria. The patient was empirically treated for sepsis secondary to urinary tract infection. Blood cultures were negative. Urine culture eventually grew Pseudomonas and ESBL positive E. coli. Pseudomonas was resistant to quinolones and E. coli sensitive to meropenem, gentamicin, Zosyn and Augmentin. Due to the sensitivity pattern, his oral options for treatment were none. The patient was subsequently hospitalized for IV Zosyn for a total of 7 days. He did meet with Infectious Disease specialist, Dr. Sergio Markham who recommended that treatment. There was question as to the patient's safety at home as he has significant balance issues due to his Parkinson's and the patient seems to have little insight into these limitations and potential hazards as a result. His capacity to continue to make medical decision specifically to go home without additional assistance was called into question and the patient met with psychiatrist, Dr. Pereira, who felt that he maintains capacity to make informed medical decisions. The patient eventually did agree at his 's coaxing to allow for a referral to visiting nurse service along with home physical therapy. DISPOSITION AND FOLLOWUP PLAN: The patient is being discharged to home. He has completed full treatment for his urinary tract infection and additional antibiotics will not be prescribed. He is to resume his usual home medications. His Vance catheter was changed during his hospitalization. He should follow up with urologist, Dr. Gutierrez as previously scheduled and his primary care provider within the next week regarding this hospital stay. LIANNE MACIAS [id number]/[facility] #: [id number] [place]
== END 2017-02-10 11:40 | disposition home health service (06) | DRG 698 ==
LOC: ED 01:11 → MED 04:19
PROVIDERS: ADMIT Internal Medicine; ATTEND Internal Medicine
DX: T83.511A Infection and inflammatory reaction due to indwelling urethral catheter, initial encounter (principal); A41.9 Sepsis, unspecified organism; G93.40 Encephalopathy, unspecified; N17.9 Acute kidney failure, unspecified; N13.8 Other obstructive and reflux uropathy; N30.00 Acute cystitis without hematuria; B96.20 Unspecified Escherichia coli [E. coli] as the cause of diseases classified elsewhere; B96.5 Pseudomonas (aeruginosa) (mallei) (pseudomallei) as the cause of diseases classified elsewhere; Z16.23 Resistance to quinolones and fluoroquinolones; I12.9 Hypertensive chronic kidney disease with stage 1 through stage 4 chronic kidney disease, or unspecified chronic kidney disease; N18.9 Chronic kidney disease, unspecified; N40.1 Benign prostatic hyperplasia with lower urinary tract symptoms; R33.8 Other retention of urine; G20 Parkinson's disease; E87.5 Hyperkalemia; M35.3 Polymyalgia rheumatica; M19.012 Primary osteoarthritis, left shoulder; M19.011 Primary osteoarthritis, right shoulder; Z79.891 Long term (current) use of opiate analgesic; Z79.899 Other long term (current) drug therapy; Z88.6 Allergy status to analgesic agent; Z88.8 Allergy status to other drugs, medicaments and biological substances; Z82.49 Family history of ischemic heart disease and other diseases of the circulatory system; Z80.1 Family history of malignant neoplasm of trachea, bronchus and lung; Z83.3 Family history of diabetes mellitus
CPT/HCPCS: 36415; 70450; 71010; 80048; 80053; 81003; 81015; 83605; 83690; 84484; 85025; 85610; 85730; 86140; 87040; 87077; 87086; 87186; 93005; A9270-GY; J1650; J2543; J3370

== ENCOUNTER 2017-10-06 15:00 | Inpatient (IN) | payer MEDICARE, BC ==
[2017-10-06] MEDS ORDERED: Piperacillin/Tazobac ADVAN(*) 3.375 GM in NS 0.9% 100 ML* 100 ML IVPB ONE (15:20)
[2017-10-06] MEDS ORDERED: NS 0.9% 1000 ML*IV.FLUID IV ONE (15:20)
[2017-10-06] MEDS ORDERED: HYDROcodone/ACETAMIN 5-325 MG* 1 TAB PO ONE (15:46)
[2017-10-06 15:52] LABS: ABS Basophils 0.1 10^3/ul (0-0.2); ABS Eosinophils 0.2 10^3/ul (0-0.6); ABS Lymphocytes 0.5 10^3/ul (1.0-4.8); ABS Monocytes 1.1 10^3/ul (0-0.8); ABS Neutrophils 16.8 10^3/ul (1.5-7.7); ABS Nucleated RBC 0 10^3/ul; Eosinophil % 1.1 % (0-6); Hematocrit 36 % (42-52); Hemoglobin 12.3 g/dl (14.0-18.0); Lymphocyte % 2.8 % (25-47); Mean Corpuscular HGB Conc 34 g/dl (31-36); Mean Corpuscular Hemoglobin 31 pg (27-31); Mean Corpuscular Volume 93 fL (80-94); Mean Platelet Volume 6.9 um3 (7.4-10.4); Nucleated Red Blood Cells % 0; Platelet Count 300 10^3/ul (150-450); Red Blood Count 3.93 10^6/ul (4.00-5.40); Red Cell Distribution Width 14 % (10.5-15); White Blood Count 18.6 10^3/ul (3.5-10.8)
[2017-10-06] MEDS ORDERED: Vancomycin(*) 1,000 MG VIAL IVPB SCH (16:00)
[2017-10-06 16:02] LABS: INR 0.99 (0.77-1.02)
--- NOTE | 2017-10-06 16:09 | ED ---
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 He states other than his Parkinson's, he is usually healthy. He denies any abdominal pain, chest pain or shortness of breath. Denies any cough or recent illness. His catheter was changed a few days ago and states he feels it may be leaking. His catheter gets changed every 5-6 weeks. Fever highest at home at 102.1, he is diaphoretic on arrival. - History of Current Complaint Chief Complaint: EDFever Time Seen by Provider: 10/06/17 15:09 Stated Complaint: FEVER/CHILLS Hx Obtained From: Patient Onset/Duration: Started Hours Ago Timing: Constant Onset Severity: Moderate Current Severity: Moderate Pain Intensity: 9 Pain Scale Used: 0-10 Numeric Aggravating Symptom(s): Unknown Alleviating Factor(s): Unknown Associated Signs & Symptoms: Chills, Diaphoresis - Risk Factor(s) Pseudomonas Risk Factors: Negative Serious Bacterial Infection Risk Factors: Vance Catheter - Additional Pertinent History Primary Care Physician: [id number] - Allergy/Home Medications Allergies/Adverse Reactions: Allergies Allergy/AdvReac Type Severity Reaction Status Date / Time allopurinol Allergy Unknown Verified 10/06/17 16:01 Reaction Details aspirin Allergy Heartburn Verified 10/06/17 16:01 Quinazolinones Allergy Dizziness Verified 10/06/17 16:01 alpha blockers Allergy Unknown Uncoded 10/06/17 16:02 Reaction Details PMH/Surg Hx/FS Hx/Imm Hx Previously Healthy: Yes Cardiovascular History: Reports: Hx Hypertension Respiratory History: Denies: Hx Pneumonia GI History: Reports: Other GI Disorders - constipation History: Reports: Hx Benign Prostatic Hyperplasia - TURP within last 5 years , Other Problems/Disorders - Hx UTIs Musculoskeletal History: Reports: Hx Arthritis - NECK SARAH SHOULDERS, Hx Tendonitis - SHOULDER Sensory History: Reports: Hx Contacts or Glasses - GLASSES Denies: Hx Hearing Aid Opthamlomology History: Reports: Hx Contacts or Glasses - GLASSES Neurological History: Reports: Other Neuro Impairments/Disorders - parkinson's disease - Surgical History Surgery Procedure, Year, and Place: 1983 ROTATOR CUFF [facility]. 2008 HERNIA [facility]. 1986 RT TOTAL KNEE [facility]. 1986 LT TOTAL KNEE [facility]. 1993 LUMBAR STENOSIS [facility]. 2011 TURP [facility] Hx Anesthesia Reactions: No - Immunization History Hx Pertussis Vaccination: No Immunizations Up to Date: Unable to Obtain/Confirm Infectious Disease History: No Infectious Disease History: Denies: Traveled Outside the [place] in Last 30 Days - Family History Known Family History: Positive: Hypertension, Other - lung CA - mother, [place] - father Negative: Diabetes - Social History Occupation: Unemployed Lives: With Family Alcohol Use: None Hx Substance Use: Yes Substance Use Type: Reports: Prescribed Substance Use Comment - Amount & Last Used: percocet T6wpcys for 3-4 years Hx Tobacco Use: No Smoking Status (MU): Never Smoked Tobacco Review of Systems Positive: Chills, Fatigue, Skin Diaphoresis. Negative: Fever Eyes: Negative Negative: Palpitations, Chest Pain Negative: Shortness Of Breath, Cough Negative: Abdominal Pain, Vomiting, Diarrhea, Nausea Genitourinary: Negative Positive: no symptoms reported, see HPI Negative: Arthralgia, Myalgia Skin: Negative Neurological: Negative All Other Systems Reviewed And Are Negative: Yes Physical Exam Triage Information Reviewed: Yes Vital Signs On Initial Exam: Initial Vitals Pulse Pulse Ox 106 100 10/06/17 15:09 10/06/17 15:09 Vital Signs Reviewed: Yes Appearance: Positive: Well-Appearing, Well-Nourished Skin: Positive: Warm, Skin Color Reflects Adequate Perfusion, Diaphoretic Head/Face: Positive: Temporal Artery Tenderness Eyes: Positive: EOMI Neck: Positive: Supple, No Lymphadenopathy Respiratory/Lung Sounds: Positive: Clear to Auscultation, Breath Sounds Present Neurological: Positive: Sensory/Motor Intact, Alert, Oriented to Person Place, Time, Unable to Assess Gait, Speech Normal Psychiatric: Positive: Normal, Affect/Mood Appropriate AVPU Assessment: Alert Diagnostics - Vital Signs Vital Signs Temp Pulse Resp BP Pulse Ox 10/06/17 15:45 99 166/70 100 10/06/17 15:25 100 10/06/17 15:10 101.9 F 104 16 154/100 100 10/06/17 15:09 106 100 - Laboratory Lab Results: Lab Results 10/06/17 10/06/17 Range/Units 15:32 15:32 WBC 18.6 H (3.5-10.8) 10^3/ul RBC 3.93 L (4.00-5.40) 10^6/ul Hgb 12.3 L (14.0-18.0) g/dl Hct 36 L (42-52) % MCV 93 (80-94) fL MCH 31 (27-31) pg MCHC 34 (31-36) g/dl RDW 14 (10.5-15) % Plt Count 300 (150-450) 10^3/ul MPV 6.9 L (7.4-10.4) um3 Neut % (Auto) 89.8 H (38-83) % Lymph % (Auto) 2.8 L (25-47) % Butts % (Auto) 5.9 (0-7) % Eos % (Auto) 1.1 (0-6) % Baso % (Auto) 0.4 (0-2) % Absolute Neuts (auto) 16.8 H (1.5-7.7) 10^3/ul Absolute Lymphs (auto) 0.5 L (1.0-4.8) 10^3/ul Absolute Monos (auto) 1.1 H (0-0.8) 10^3/ul Absolute Eos (auto) 0.2 (0-0.6) 10^3/ul Absolute Basos (auto) 0.1 (0-0.2) 10^3/ul Absolute Nucleated RBC 0 10^3/ul Nucleated RBC % 0 ESR Pending INR (Anticoag Therapy) 0.99 (0.77-1.02) APTT 29.7 (26.0-36.3) seconds Result Diagrams: 10/06/17 15:32 10/06/17 15:32 Lab Statement: Any lab studies that have been ordered have been reviewed, and results considered in the medical decision making process. Course/Dx - Course Course Of Treatment: Just procedures and all all procedures Gastro or or medical when he is no ENT or Gastro 5 days as hours and your well as being around patient's here were ordered [id number] alive just daily O definitely and his glyburide Y varieties so it cedures chest tube placement History of urosepsis requiring hospitalization. Immediately on arrival, sepsis protocol was initiated. Due to history of urosepsis, Zosyn is given and resuscitation of fluids. He states he normally takes his Percocet at home which has Tylenol, but has not taken this since this morning. I have given him to hydrocodone/ acetaminophen. Discussed case with Dr. Hernandez, hospitalist to admit for sepsis. Vital signs 103.1, 106, 154/100. White blood cell count is 18.6. Chest x-ray shows no active disease. UA shows 3+ leukocytes, 3+ WBC. Patient is okay for admission into the hospital. - Differential Dx/Clinical Impression Provider Diagnosis: Sepsis - Provider Notifications Discussed Care Of Patient With: Prem Hernandez Discharge - Sign-Out/Discharge Documenting (check all that apply): Discharge/Admit/Transfer - Discharge Plan Condition: Stable Disposition: HOME Referrals: Hector Carmen MD [Primary Care Provider] - - Billing Disposition and Condition Condition: STABLE Disposition: Home
[2017-10-06 16:15] LABS: Urine Appearance Cloudy; Urine Blood Negative (Negative); Urine Color Yellow; Urine Ketones Trace (Negative); Urine Protein Negative (Negative); Urine Specific Gravity 1.015 (1.010-1.030); Urine Urobilinogen Negative (Negative)
--- NOTE | 2017-10-06 16:24 | RAD ---
INDICATION: Sepsis COMPARISON: February 03, 2017 TECHNIQUE: An AP portable view obtained at 1600 hours is submitted. FINDINGS: Bones/Soft Tissues: There are no acute bony findings. Cardiomediastinal: The cardiomediastinal silhouette is normal. Lungs: There are no infiltrates. Pleura: There are no pleural effusions. Other: None IMPRESSION: NO ACTIVE DISEASE.
[2017-10-06 16:34] LABS: EGFR Non-African American 43.4 (>60)
[2017-10-06] MEDS ORDERED: Piperacillin/Tazobac ADVAN(*) 3.375 GM in NS 0.9% 100 ML* 100 ML IVPB SCH (17:00)
[2017-10-06] MEDS: Carbidopa/Levodop 10/100 MG TAB(*) PO SCH ×5 (17:34→23:36)
--- NOTE | 2017-10-06 19:24 | HP ---
CC: Dr. Carmen* [facility] MEDICINE HISTORY AND PHYSICAL: DATE OF ADMISSION: 10/06/17 PRIMARY CARE PHYSICIAN: Dr. Carmen. ATTENDING PHYSICIAN: Jovi Hernandez MD * (dictation provided by Paul Dan NP ). CHIEF COMPLAINT: Rigors with fevers. HISTORY OF PRESENT ILLNESS: Mr. Montana is an 82-year-old male with a past medical history of Parkinson's and chronic indwelling Vance for benign prostatic hypertrophy who presents to the hospital today after sudden onset of rigors associated with a fever. Mr. Montana states he has been in his normal state of health with absolutely no acute complaints. He does have Parkinson's and requires a walker for ambulation. He reports that today suddenly at 1 o' clock he became very shaky. He reports he never felt anything like this before. His body was shaking dramatically. He ultimately took his temperature and found it to be 103.7 and then called emergency medical services to be brought to the hospital. He denies any other recent complaints. He has had no fever prior to today. He has had no chest pain, no shortness of breath. He denies nausea, vomiting, diarrhea, abdominal pain. He does have a chronic indwelling Vance and he has had frequent urinary tract infections in the past. He states that his last Vance change was on last Saturday with Dr. Guiterrez. In the emergency room, Mr. Montana had labs that showed a white blood cell count of 18.6. His urine was overtly cloudy and thick. His BUN and creatinine are at baseline. His CRP is 11.32. His urine shows 3+ leuk esterase, 1+ bacteria. The patient's temperature is 101.9. His pulse rate is about 98. Blood pressure 154/69. PAST MEDICAL HISTORY: 1. Parkinson's. 2. Hypertension. 3. History of polymyalgia rheumatica, not active. 4. Bilateral shoulder osteoarthritis. 5. Vertigo. 6. History of TURP for BPH. 7. Sepsis with urinary tract infection secondary to chronic indwelling Vance. MEDICATIONS: 1. Meloxicam 15 mg p.o. daily. 2. Lisinopril 10 mg p.o. daily. 3. Hydrochlorothiazide 25 mg p.o. daily. 4. Clopidogrel 75 mg p.o. daily. 5. Sinemet 10/100 nine tablets p.o. daily. 6. Oxycodone with acetaminophen 10/325 one tablet p.o. q.4 hours. 7. Amlodipine 10 mg p.o. daily. ALLERGIES: ALLOPURINOL, ASPIRIN, QUINAZOLINONES, and ALPHA BLOCKERS. FAMILY HISTORY: The patient reports that his father of an SD in his 50s. Mother had lung cancer, though she was a nonsmoker. SOCIAL HISTORY: No report of alcohol, tobacco, or drug use. 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 He is . His is at the bedside. She is the healthcare proxy. Has 4 children. REVIEW OF SYSTEMS: A 14-point review of systems was completed with Mr. Montana and all those not mentioned above were negative. PHYSICAL EXAMINATION GENERAL: Mr. Montana is lying in the bed. He has a mild tremor at rest. He is in no acute distress. His is at the bedside. VITAL SIGNS: Temperature 101.9, pulse rate 98, respiratory rate 16, O2 saturation 100% on room air, blood pressure 166/70. LUNGS: Clear to auscultation bilaterally with no accessory muscle use and good aeration. HEART: S1, S2. No murmur, rub, or gallop and regular. ABDOMEN: Soft, nontender with bowel sounds positive x4. EXTREMITIES: No cyanosis or edema. NEUROLOGICAL: He is alert. He is oriented x3. He moves all extremities equally. There is no facial asymmetry or focal weakness. Extraocular movements are intact. SKIN: Intact. DIAGNOSTIC STUDIES/LAB DATA: WBC 18.6, hemoglobin 12.3, hematocrit 36, platelet count 300,000. INR 0.99. Sodium 135, potassium 5.0, chloride 101, serum bicarbonate 24, BUN 47, creatinine 1.55, glucose 117. CRP 11.32. Urine shows 3+ leuk esterase and 1+ bacteria. Review of microbiology from previous urine culture shows the patient has had frequent episodes of ESBL E. coli and Pseudomonas aeruginosa. Chest x-ray shows no active disease. The EKG shows sinus rhythm with no evidence of ischemia. It is being picked as AFib per the automatic read from the EKG machine, but I suspect there are consistent P waves with PACs. Plan to repeat EKG. ASSESSMENT/PLAN: Mr. Montana is an 82-year-old male with a past medical history of Parkinson's disease and benign prostatic hypertrophy with chronic indwelling Vance who presents to the hospital today with sudden onset of rigors and fever, found to have sepsis with positive white blood cell count and fever as well as tachycardia without evidence of end organ dysfunction. His lactic acid is normal. Our plans are for inpatient admission as I expect his length of stay to be greater than 2 days for the followin. Sepsis secondary to urinary tract infection. The patient has had frequent ESBL and pseudomonas urine cultures with multiple resistance patterns. Plan now for Zosyn as it appears to be most consistent with his previous history in terms of antibiotic susceptibility. His lactic acid is normal. He has been hydrated appropriately in the emergency department. We will continue with maintenance fluids and we will also plan to hold hydrochlorothiazide, lisinopril during his acute illness. We will await urine cultures and adjust antibiotics as needed. Blood cultures have been sent. 2. Hypertension. Plan to hold lisinopril and hydrochlorothiazide, but will continue amlodipine with hold parameters. 3. DVT prophylaxis with heparin subcu. 4. History of Plavix use. The patient states that he uses Plavix as his primary care physician felt that he is high risk for potential transient ischemic attacks. We will continue. 5. Parkinson's disease. Continue carbidopa/levodopa at home dose, which is 0.5 q.1.5 hours. 6. Code status is full code. TIME SPENT: Approximately 60 minutes were spent on the admission of this patient, more than half time spent with the patient at the bedside reviewing the events leading up to this hospitalization, performing the physical examination, and reviewing my plan of care. PAUL DAN NP [id number]/[facility] #: [id number] [place]
[2017-10-06] MEDS: NS 0.9% 1000 ML* 1,000 ML IV SCH (21:54)
[2017-10-06] MEDS: Piperacillin/Tazobac ADVAN(*) 3.375 GM in NS 0.9% 100 ML* 100 ML IVPB SCH (21:54)
[2017-10-06] MEDS: Heparin VIAL(*) 5000 UNITS/ML VIAL (FIVE THOUSAND) SUBCUT SCH (22:00)
[2017-10-07] MEDS: Piperacillin/Tazobac ADVAN(*) 3.375 GM in NS 0.9% 100 ML* 100 ML IVPB SCH ×3 (04:03→19:49)
[2017-10-07] MEDS: Carbidopa/Levodop 10/100 MG TAB(*) PO SCH ×15 (04:04→23:08)
[2017-10-07] MEDS: oxyCODONE/Acetamin 5/325 MG* TAB PO PRN ×3 (04:07→23:06)
[2017-10-07] MEDS: Heparin VIAL(*) 5000 UNITS/ML VIAL (FIVE THOUSAND) SUBCUT SCH ×3 (05:23→21:16)
[2017-10-07 07:06] LABS: Hematocrit 30 % (42-52); Hemoglobin 9.8 g/dl (14.0-18.0); Mean Corpuscular HGB Conc 33 g/dl (31-36); Mean Corpuscular Hemoglobin 31 pg (27-31); Mean Corpuscular Volume 93 fL (80-94); Mean Platelet Volume 6.7 um3 (7.4-10.4); Platelet Count 222 10^3/ul (150-450); Red Blood Count 3.17 10^6/ul (4.00-5.40); Red Cell Distribution Width 14 % (10.5-15); White Blood Count 20.8 10^3/ul (3.5-10.8)
[2017-10-07 07:29] LABS: EGFR Non-African American 49.6 (>60)
[2017-10-07 07:45] LABS: ABS Basophils 0.1 10^3/ul (0-0.2); ABS Eosinophils 0.2 10^3/ul (0-0.6); ABS Lymphocytes 1.9 10^3/ul (1.0-4.8); ABS Monocytes 2.3 10^3/ul (0-0.8); ABS Neutrophils 16.3 10^3/ul (1.5-7.7); ABS Nucleated RBC 0 10^3/ul
[2017-10-07 07:46] LABS: Eosinophil % 0.8 % (0-6); Lymphocyte % 9.1 % (25-47); Nucleated Red Blood Cells % 0
[2017-10-07] MEDS: amLODIPine TAB* 5 MG PO SCH (07:49)
[2017-10-07] MEDS: Clopidogrel TAB* 75 MG PO SCH (07:50)
--- NOTE | 2017-10-07 09:01 | PN ---
Subjective Date of Service: 10/07/17 Interval History: No additional rigors, no ROMERO, nausea, chest pain, SOB, diarrhea Ate breakfast and is concerned when he will be able to return home Objective Active Medications: Amlodipine Besylate (Norvasc Tab*) 10 mg PO DAILY [facility] Last Admin: 10/07/17 07:49 Dose: 10 mg Carbidopa/Levodopa (Sinemet 10/100 Tab(*)) 0.5 tab PO 0400,0530,0700,0830 [facility] Last Admin: 10/07/17 07:50 Dose: 0.5 tab Carbidopa/Levodopa (Sinemet 10/100 Tab(*)) 0.5 tab PO 1000,1130,1300,1430 [facility] Carbidopa/Levodopa (Sinemet 10/100 Tab(*)) 0.5 tab PO 1600,1730,1900,2030 [facility] Last Admin: 10/06/17 21:58 Dose: 0.5 tab Carbidopa/Levodopa (Sinemet 10/100 Tab(*)) 0.5 tab PO 2200,2330 [facility] Last Admin: 10/06/17 23:36 Dose: 0.5 tab Clopidogrel Bisulfate (Plavix Tab*) 75 mg PO DAILY [facility] Last Admin: 10/07/17 07:50 Dose: 75 mg Heparin Sodium (Porcine) (Heparin Vial(*)) 5,000 units SUBCUT Q8HR [facility] Last Admin: 10/07/17 05:23 Dose: 5,000 units Sodium Chloride (Ns 0.9% 1000 Ml*) 1,000 mls @ 100 mls/hr IV PER RATE [facility] Stop: 10/08/17 02:59 Last Admin: 10/06/17 21:54 Dose: 100 mls/hr Piperacillin Sod/Tazobactam (Sod 3.375 gm/ Sodium Chloride) 100 mls @ 25 mls/ hr IVPB 0400,1200,2000 [facility] Last Admin: 10/07/17 04:03 Dose: 25 mls/hr Oxycodone/Acetaminophen (Percocet 5/325 Tab*) 2 tab PO Q4H PRN PRN Reason: PAIN Last Admin: 10/07/17 04:07 Dose: 2 tab Vital Signs - 8 hr 10/07/17 10/07/17 10/07/17 04:07 04:15 07:30 Temperature 98.8 F 97.9 F Pulse Rate 64 57 Respiratory 17 16 16 Rate Blood Pressure 132/47 106/43 (mmHg) O2 Sat by Pulse 96 96 Oximetry 10/07/17 07:57 Temperature Pulse Rate Respiratory 16 Rate Blood Pressure (mmHg) O2 Sat by Pulse Oximetry Oxygen Devices in Use Now: None Appearance: sitting up, NAD, interactive Eyes: No Scleral Icterus, PERRLA Ears/Nose/Mouth/Throat: Clear Oropharnyx, Mucous Membranes Moist Neck: NL Appearance and Movements; NL JVP, Trachea Midline Respiratory: Symmetrical Chest Expansion and Respiratory Effort, Clear to Auscultation Cardiovascular: RRR, - - 2/6 ESTEVAN RUSB Abdominal: NL Sounds; No Tenderness; No Distention, No Hepatosplenomegaly Lymphatic: No Cervical Adenopathy Extremities: No Edema Skin: - - exoriations on scalp Neurological: Alert and Oriented x 3 Result Diagrams: 10/07/17 06:41 10/07/17 06:41 Additional Lab and Data: Lab Results 10/06/17 10/06/17 Range/Units 15:32 15:32 WBC 18.6 H (3.5-10.8) 10^3/ul RBC 3.93 L (4.00-5.40) 10^6/ul Hgb 12.3 L (14.0-18.0) g/dl Hct 36 L (42-52) % MCV 93 (80-94) fL MCH 31 (27-31) pg MCHC 34 (31-36) g/dl RDW 14 (10.5-15) % Plt Count 300 (150-450) 10^3/ul MPV 6.9 L (7.4-10.4) um3 Neut % (Auto) 89.8 H (38-83) % Lymph % (Auto) 2.8 L (25-47) % Chase % (Auto) 5.9 (0-7) % Eos % (Auto) 1.1 (0-6) % Baso % (Auto) 0.4 (0-2) % Absolute Neuts (auto) 16.8 H (1.5-7.7) 10^3/ul Absolute Lymphs (auto) 0.5 L (1.0-4.8) 10^3/ul Absolute Monos (auto) 1.1 H (0-0.8) 10^3/ul Absolute Eos (auto) 0.2 (0-0.6) 10^3/ul Absolute Basos (auto) 0.1 (0-0.2) 10^3/ul Absolute Nucleated RBC 0 10^3/ul Nucleated RBC % 0 ESR Pending INR (Anticoag Therapy) 0.99 (0.77-1.02) APTT 29.7 (26.0-36.3) seconds Assess/Plan/Problems-Billing Assessment: 82 yo M h/o parkinsons, BPH with h/o TURP and chronic shaikh a/w history of catheter associated UTIs pw sudden onset rigors and fever - Patient Problems (1) Sepsis Comment: sepsis criteria at admission suspect secondary to UTI. Shaikh changed h/o ESBL and pseudomonas in urine c/w NS x 1 additional liter c/w zosyn Blood and urine cultures pending (2) HTN (hypertension) Comment: amlodipine holding hctz and lisinopril (3) Parkinson disease Comment: Continue home Sinemet. (4) CKD (chronic kidney disease) Comment: stable since 05/2017 (5) DVT prophylaxis Comment: HSQ
[2017-10-07] MEDS ORDERED: Polyethylene Glycol 3350* 17 GM PACKET PO PRN (10:20)
[2017-10-07] MEDS: Famotidine TAB* 20 MG PO SCH (11:05)
[2017-10-07] MEDS: NS 0.9% 1000 ML* 1,000 ML IV SCH (11:45)
[2017-10-08] MEDS: Piperacillin/Tazobac ADVAN(*) 3.375 GM in NS 0.9% 100 ML* 100 ML IVPB SCH (04:09)
[2017-10-08] MEDS: Carbidopa/Levodop 10/100 MG TAB(*) PO SCH ×14 (04:09→23:29)
[2017-10-08] MEDS: Heparin VIAL(*) 5000 UNITS/ML VIAL (FIVE THOUSAND) SUBCUT SCH ×3 (05:34→21:01)
[2017-10-08 07:31] LABS: ABS Basophils 0.1 10^3/ul (0-0.2); ABS Eosinophils 0.4 10^3/ul (0-0.6); ABS Lymphocytes 1.8 10^3/ul (1.0-4.8); ABS Neutrophils 8.5 10^3/ul (1.5-7.7); ABS Nucleated RBC 0 10^3/ul; Eosinophil % 3.3 % (0-6); Hematocrit 30 % (42-52); Hemoglobin 10.3 g/dl (14.0-18.0); Mean Corpuscular HGB Conc 35 g/dl (31-36); Mean Corpuscular Hemoglobin 32 pg (27-31); Mean Corpuscular Volume 92 fL (80-94); Mean Platelet Volume 6.7 um3 (7.4-10.4); Nucleated Red Blood Cells % 0; Platelet Count 206 10^3/ul (150-450); Red Blood Count 3.23 10^6/ul (4.00-5.40); Red Cell Distribution Width 14 % (10.5-15); White Blood Count 11.7 10^3/ul (3.5-10.8)
[2017-10-08 07:50] LABS: EGFR Non-African American 58.3 (>60)
[2017-10-08] MEDS: amLODIPine TAB* 5 MG PO SCH (09:12)
[2017-10-08] MEDS: Clopidogrel TAB* 75 MG PO SCH (09:12)
[2017-10-08] MEDS: Famotidine TAB* 20 MG PO SCH (09:12)
[2017-10-08] MEDS: oxyCODONE/Acetamin 5/325 MG* TAB PO PRN ×3 (09:12→23:29)
--- NOTE | 2017-10-08 09:56 | PN ---
Subjective Date of Service: 10/08/17 Interval History: Feels energy is improving Would like caffeine No other complaints Objective Active Medications: Amlodipine Besylate (Norvasc Tab*) 10 mg PO DAILY [facility] Last Admin: 10/08/17 09:12 Dose: 10 mg Amoxicillin/Clavulanate Potassium (Augmentin Tab*) 875 mg PO BID [facility] Carbidopa/Levodopa (Sinemet 10/100 Tab(*)) 0.5 tab PO 0400,0530,0700,0830 [facility] Last Admin: 10/08/17 09:12 Dose: 0.5 tab Carbidopa/Levodopa (Sinemet 10/100 Tab(*)) 0.5 tab PO 1000,1130,1300,1430 [facility] Last Admin: 10/07/17 16:32 Dose: 0.5 tab Carbidopa/Levodopa (Sinemet 10/100 Tab(*)) 0.5 tab PO 1600,1730,1900,2030 [facility] Last Admin: 10/07/17 23:08 Dose: Not Given Carbidopa/Levodopa (Sinemet 10/100 Tab(*)) 0.5 tab PO 2200,2330 [facility] Last Admin: 10/07/17 23:07 Dose: 0.5 tab Clopidogrel Bisulfate (Plavix Tab*) 75 mg PO DAILY [facility] Last Admin: 10/08/17 09:12 Dose: 75 mg Famotidine (Pepcid Tab*) 20 mg PO DAILY [facility] Last Admin: 10/08/17 09:12 Dose: 20 mg Fluconazole (Diflucan 100 Mg Tab*) 200 mg PO DAILY [facility] Stop: 10/21/17 09:01 Heparin Sodium (Porcine) (Heparin Vial(*)) 5,000 units SUBCUT Q8HR [facility] Last Admin: 10/08/17 05:34 Dose: 5,000 units Oxycodone/Acetaminophen (Percocet 5/325 Tab*) 2 tab PO Q4H PRN PRN Reason: PAIN Last Admin: 10/08/17 09:12 Dose: 2 tab Polyethylene Glycol/Electrolytes (Miralax*) 17 gm PO DAILY PRN PRN Reason: CONSTIPATION Vital Signs - 8 hr 10/08/17 10/08/17 10/08/17 04:07 07:29 09:12 Temperature 97.6 F 97.7 F Pulse Rate 56 58 Respiratory 16 18 18 Rate Blood Pressure 123/42 130/54 (mmHg) O2 Sat by Pulse 97 97 Oximetry Oxygen Devices in Use Now: None Appearance: sitting in chair, NAD Eyes: No Scleral Icterus, PERRLA Ears/Nose/Mouth/Throat: NL Teeth, Lips, Gums, Clear Oropharnyx, Mucous Membranes Moist Neck: NL Appearance and Movements; NL JVP, Trachea Midline Respiratory: Symmetrical Chest Expansion and Respiratory Effort, Clear to Auscultation Cardiovascular: RRR Abdominal: NL Sounds; No Tenderness; No Distention, No Hepatosplenomegaly Lymphatic: No Cervical Adenopathy Extremities: No Edema Skin: No Rash or Ulcers Neurological: Alert and Oriented x 3 Lines/Tubes/Other Access: Clean, Dry and Intact Shaikh Result Diagrams: 10/08/17 07:21 10/08/17 07:21 Additional Lab and Data: Lab Results 10/06/17 10/06/17 Range/Units 15:32 15:32 WBC 18.6 H (3.5-10.8) 10^3/ul RBC 3.93 L (4.00-5.40) 10^6/ul Hgb 12.3 L (14.0-18.0) g/dl Hct 36 L (42-52) % MCV 93 (80-94) fL MCH 31 (27-31) pg MCHC 34 (31-36) g/dl RDW 14 (10.5-15) % Plt Count 300 (150-450) 10^3/ul MPV 6.9 L (7.4-10.4) um3 Neut % (Auto) 89.8 H (38-83) % Lymph % (Auto) 2.8 L (25-47) % Gaines % (Auto) 5.9 (0-7) % Eos % (Auto) 1.1 (0-6) % Baso % (Auto) 0.4 (0-2) % Absolute Neuts (auto) 16.8 H (1.5-7.7) 10^3/ul Absolute Lymphs (auto) 0.5 L (1.0-4.8) 10^3/ul Absolute Monos (auto) 1.1 H (0-0.8) 10^3/ul Absolute Eos (auto) 0.2 (0-0.6) 10^3/ul Absolute Basos (auto) 0.1 (0-0.2) 10^3/ul Absolute Nucleated RBC 0 10^3/ul Nucleated RBC % 0 ESR Pending INR (Anticoag Therapy) 0.99 (0.77-1.02) APTT 29.7 (26.0-36.3) seconds Microbiology and Other Data: Microbiology 10/06/17 15:32 Aerobic Blood Culture - Preliminary Blood Venous No Growth Day 1 Anaerobic Blood Culture - Preliminary No Growth Day 1 10/06/17 15:33 Urine Culture - Final Urine Imelda Parapsilosis 10/06/17 15:32 Aerobic Blood Culture - Preliminary Blood Venous No Growth Day 1 Anaerobic Blood Culture - Preliminary No Growth Day 1 Assess/Plan/Problems-Billing Assessment: 82 yo M h/o parkinsons, BPH with h/o TURP and chronic shaikh a/w history of catheter associated UTIs pw sudden onset rigors and fever - Patient Problems (1) Sepsis Comment: sepsis criteria at admission suspect secondary to UTI - Ucx growing imelda but no bacteria Shaikh changed on admission stop zosyn and start PO fluconazole 200mg daily x 14 days Change IV abx to augementin. I am not convinced fungal infection is the only source. Augmentin would be best abx for bacteruria based on previous cultures Monitor another 24 hrs Labs in AM (2) HTN (hypertension) Comment: amlodipine holding hctz and lisinopril (3) Parkinson disease Comment: Continue home Sinemet. (4) CKD (chronic kidney disease) Comment: stable since 05/2017 Improved since admission. Some component of ALEENA on admission (5) DVT prophylaxis Comment: HSQ
[2017-10-08] MEDS: Fluconazole 100 MG TAB* TAB PO SCH (10:28)
[2017-10-08] MEDS: Amoxicillin/Clavulanate TAB* 875 MG PO SCH (19:37)
[2017-10-09] MEDS: guaiFENesin LIQ* 100 MG/5 ML UDC PO PRN ×2 (01:03→05:37)
[2017-10-09] MEDS: Carbidopa/Levodop 10/100 MG TAB(*) PO SCH ×8 (03:41→14:54)
[2017-10-09] MEDS: Heparin VIAL(*) 5000 UNITS/ML VIAL (FIVE THOUSAND) SUBCUT SCH ×2 (05:18→13:13)
[2017-10-09] MEDS: oxyCODONE/Acetamin 5/325 MG* TAB PO PRN ×2 (06:22→11:31)
[2017-10-09 07:01] LABS: ABS Basophils 0.1 10^3/ul (0-0.2); ABS Eosinophils 0.4 10^3/ul (0-0.6); ABS Lymphocytes 1.5 10^3/ul (1.0-4.8); ABS Monocytes 1.2 10^3/ul (0-0.8); ABS Neutrophils 8.6 10^3/ul (1.5-7.7); ABS Nucleated RBC 0 10^3/ul; Eosinophil % 3.2 % (0-6); Hematocrit 32 % (42-52); Hemoglobin 10.8 g/dl (14.0-18.0); Lymphocyte % 12.5 % (25-47); Mean Corpuscular HGB Conc 34 g/dl (31-36); Mean Corpuscular Hemoglobin 32 pg (27-31); Mean Corpuscular Volume 92 fL (80-94); Mean Platelet Volume 6.5 um3 (7.4-10.4); Nucleated Red Blood Cells % 0; Platelet Count 225 10^3/ul (150-450); Red Blood Count 3.43 10^6/ul (4.00-5.40); Red Cell Distribution Width 14 % (10.5-15); White Blood Count 11.7 10^3/ul (3.5-10.8)
[2017-10-09 07:17] LABS: EGFR Non-African American 70.3 (>60)
[2017-10-09] MEDS: Amoxicillin/Clavulanate TAB* 875 MG PO SCH (08:23)
[2017-10-09] MEDS: Famotidine TAB* 20 MG PO SCH (08:24)
[2017-10-09] MEDS: Clopidogrel TAB* 75 MG PO SCH (08:24)
[2017-10-09] MEDS: amLODIPine TAB* 5 MG PO SCH (08:24)
[2017-10-09] MEDS: Fluconazole 100 MG TAB* TAB PO SCH (08:24)
[2017-10-09 12:53] VITALS: BP 136/60
--- NOTE | 2017-10-10 08:05 | DS ---
CC: Dr. Carmen * DISCHARGE SUMMARY: DATE OF ADMISSION: 10/06/17 DATE OF DISCHARGE: 10/09/17 PRIMARY CARE PROVIDER: Dr. Carmen. PRIMARY DIAGNOSES: 1. Sepsis secondary to urinary tract infection secondary to an indwelling Vance catheter. 2. Acute kidney injury. SECONDARY DIAGNOSES: Include: 1. Parkinson's disease. 2. Hypertension. 3. Benign prostatic hyperplasia with a history of transurethral resection of the prostate. 4. History of sepsis secondary to previous urinary tract infections. DISCHARGE MEDICATIONS: Include: 1. Meloxicam 15 mg daily. 2. Lisinopril 10 mg daily. 3. Clopidogrel 75 mg daily. 4. Percocet 10/325 one tab every 4 hours as needed for pain. 5. Amlodipine 10 mg daily. 6. Fluconazole 200 mg daily. 7. Famotidine 20 mg daily. 8. Sinemet 10/100 0.5 mg 9 times a day. 9. Augmentin 875 mg twice daily. PERTINENT MICROBIOLOGY: Urine culture was positive for M[place]a parapsilosis. White blood cell count on presentation 18.6, decreased to 11.7 on discharge. Creatinine 1.55 on admission, 1.02 on discharge. HISTORY OF PRESENT ILLNESS AND HOSPITAL COURSE: This is an 82-year-old man with past medical history as outlined in the history of present illness, on the day of admission, had recent Vance catheter changed prior to presentation, developed rigors and fevers at home, presented to the hospital, found to be septic, elevated white blood cell count, fever, tachypnea, and tachycardia. He was admitted to the hospital, started on Zosyn for presumed urinary tract infection, based on previous resistance profile from previously isolated bacteria from his urine. He improved on the Zosyn in the first 48 hours and his urine culture ultimately yielded imelda, but no bacteria. He was transitioned on the day prior to his discharge to Augmentin from Zosyn with the addition of fluconazole. Augmentin was chosen based on previous resistance profiles, although I note that it would not be active against the pseudomonas previously isolated. It would be largely active against the predominant species of E. coli previously isolated. The patient has improved back to his baseline on the day of discharge. I did discuss at length reasons to return to the emergency room including fevers, chills or night sweats, increased fatigue, chest pain, shortness of breath, nausea, vomiting, lightheadedness, loss of consciousness. He is to have a repeat CBC next Saturday with his PCP in order to evaluate for continued resolution of urinary tract infection. I do have some concern that despite the negative culture, he is harboring resistant bacteria in his urine. It is for this reason that I continued him on Augmentin and gave him very strict return to hospital instructions. The patient acknowledged understanding and agrees with plan. FOLLOWUP INSTRUCTIONS: At followup, please: 1. Follow CBC for continued resolution of infection. Discharge white blood cell count was 11.7, which was 73.3% neutrophils. 2. Please note the discontinuation of hydrochlorothiazide during the hospital stay secondary to well controlled blood pressures. Restart if deemed necessary. 3. No other specific labs or vitals that need followup. TIME SPENT: Greater than 60 minutes was spent on the discharge of the patient, greater than half was spent [id number] with the patient. [id number]/[facility] #: [id number] [place]
== END 2017-10-09 14:45 | disposition home or self-care (01) | DRG 698 ==
LOC: ED 15:00 → MED 18:03
PROVIDERS: ADMIT Internal Medicine; ATTEND Internal Medicine
PROC: 0T2BX0Z Change Drainage Device in Bladder, External Approach (ICD-10-PCS; principal; 2017-10-06)
DX: T83.518A Infection and inflammatory reaction due to other urinary catheter, initial encounter (principal); A41.9 Sepsis, unspecified organism; N39.0 Urinary tract infection, site not specified; N17.9 Acute kidney failure, unspecified; Y73.1 Therapeutic (nonsurgical) and rehabilitative gastroenterology and urology devices associated with adverse incidents; G20 Parkinson's disease; N40.0 Benign prostatic hyperplasia without lower urinary tract symptoms; B96.89 Other specified bacterial agents as the cause of diseases classified elsewhere; M35.3 Polymyalgia rheumatica; M19.012 Primary osteoarthritis, left shoulder; M19.011 Primary osteoarthritis, right shoulder; I12.9 Hypertensive chronic kidney disease with stage 1 through stage 4 chronic kidney disease, or unspecified chronic kidney disease; N18.9 Chronic kidney disease, unspecified; Z87.440 Personal history of urinary (tract) infections; Z90.79 Acquired absence of other genital organ(s); Z79.02 Long term (current) use of antithrombotics/antiplatelets; Y92.9 Unspecified place or not applicable; Z88.8 Allergy status to other drugs, medicaments and biological substances; Z82.49 Family history of ischemic heart disease and other diseases of the circulatory system; Z80.1 Family history of malignant neoplasm of trachea, bronchus and lung
CPT/HCPCS: 36415; 71045; 80048; 80053; 81003; 81015; 83605; 84484; 85025; 85610; 85652; 85730; 86140; 87040; 87086; 87106; 93005; 99284; A9270-GY; J1644; J2543

== ENCOUNTER 2017-11-27 19:06 | Inpatient (IN) | payer MEDICARE, BC ==
[2017-11-27] MEDS ORDERED: Acetaminophen TAB* 325 MG PO ONE (19:20)
[2017-11-27] MEDS ORDERED: Ibuprofen TAB* 600 MG PO ONE (19:21)
[2017-11-27] MEDS ORDERED: Piperacillin/Tazobac ADVAN(*) 3.375 GM in NS 0.9% 100 ML* 100 ML IVPB ONE (19:21)
[2017-11-27] MEDS ORDERED: Vancomycin(*) 1,000 MG in NS 0.9% 250 ML* 250 ML IVPB ONE (19:21)
[2017-11-27] MEDS ORDERED: NS 0.9% 1000 ML*IV.FLUID IV ONE (19:21)
--- NOTE | 2017-11-27 19:40 | ED ---
HPI Febrile Illness - HPI Summary HPI Summary: This is jenn Harding documenting for attending Dr. Cira Reinoso This patient is an 82 year old M presenting to [facility] accompanied by his with a chief complaint of febrile illness since 1630 today. He endorses quick onset, chills, fever, and bilateral shoulder soreness with movement. Pt denies N /V/D, SOB, and loss of appetite. Pt has been using a Vance catheter for 2 years , and it is changed by Dr. Gutierrez every 4 to 5 weeks, with the most recent change taking place 3 weeks ago. PMHx Parkinsons disease, able to ambulate with a walker. I, Dr. Denis personally performed the services described in this documentation as scribed in my presence and it is both accurate and complete. - History of Current Complaint Chief Complaint: EDFever Time Seen by Provider: 11/27/17 19:19 Hx Obtained From: Patient, Family/Tobacco Sweeper - Onset/Duration: Started Hours Ago, Still Present Timing: Constant Initial Severity: Moderate Current Severity: Moderate Pain Intensity: 0 Pain Scale Used: 0-10 Numeric Aggravating Factors: Nothing Alleviating Factors: Nothing Associated Signs and Symptoms: Arthralgia - bilateral shoulders, Chills, Joint Pain - bilateral shoulders - Additional Pertinent History Primary Care Physician: [id number] - Allergy/Home Medications Allergies/Adverse Reactions: Allergies Allergy/AdvReac Type Severity Reaction Status Date / Time allopurinol Allergy Unknown Verified 11/27/17 19:16 Reaction Details aspirin Allergy Heartburn Verified 11/27/17 19:16 Quinazolinones Allergy Dizziness Verified 11/27/17 19:16 alpha blockers Allergy Unknown Uncoded 11/27/17 19:16 Reaction Details Home Medications: Home Medications Fluticasone DISKUS 100 MCG(NF) 2 inh INH DAILY 11/27/17 [History Confirmed 11/27] Hydrochlorothiazide TAB* [Hydrodiuril TAB*] 25 mg PO DAILY 11/27/17 [History Confirmed 11/27/17] Polyethylene Glycol 3350* [Miralax*] 17 gm PO DAILY 11/27/17 [History Confirmed 11/27/17] raNITIdine HCl [Ranitidine HCl] 150 mg PO DAILY 11/27/17 [History Confirmed ] PMH/Surg Hx/FS Hx/Imm Hx Endocrine/Hematology History: Denies: Hx Sickle Cell Disease Cardiovascular History: Reports: Hx Hypertension Respiratory History: Denies: Hx Pneumonia GI History: Reports: Hx Gastroesophageal Reflux Disease, Other GI Disorders - constipation History: Reports: Hx Benign Prostatic Hyperplasia - TURP within last 5 years , Hx Kidney Infection, Other Problems/Disorders - Hx UTIs Musculoskeletal History: Reports: Hx Arthritis - NECK SARAH SHOULDERS, Hx Tendonitis - SHOULDER Sensory History: Reports: Hx Contacts or Glasses Denies: Hx Legally Blind, Hx Deafness, Hx Hearing Aid Opthamlomology History: Reports: Hx Contacts or Glasses Denies: Hx Legally Blind EENT History: Denies: Hx Deafness Neurological History: Reports: Other Neuro Impairments/Disorders - parkinson's disease, spinal stenosis Psychiatric History: Denies: Hx Autism, Hx Schizophrenia - Surgical History Surgery Procedure, Year, and Place: 1983 ROTATOR CUFF [facility]. 2008 HERNIA [facility]. 1986 RT TOTAL KNEE [facility]. 1986 LT TOTAL KNEE [facility]. 1993 LUMBAR STENOSIS [facility]. 2011 TURP [facility] Hx Anesthesia Reactions: No - Immunization History Date of Tetanus Vaccine: unk Date of Influenza Vaccine: fall 2016 Infectious Disease History: No Infectious Disease History: Denies: Traveled Outside the [place] in Last 30 Days - Family History Known Family History: Positive: Hypertension, Other - lung CA - mother, [place] - father Negative: Diabetes - Social History Occupation: Retired Lives: With Family - Alcohol Use: None Hx Substance Use: Yes Substance Use Type: Reports: None Substance Use Comment - Amount & Last Used: percocet [id number] for 3-4 years Hx Tobacco Use: No Smoking Status (MU): Never Smoked Tobacco Review of Systems Positive: Fever, Chills Negative: Shortness Of Breath Negative: Vomiting, Diarrhea, Nausea Positive: no symptoms reported Positive: Arthralgia - bilateral shoulders Neurological: Other - worse than baseline tremors All Other Systems Reviewed And Are Negative: Yes Physical Exam - Summary Physical Exam Summary: VITAL SIGNS: Reviewed. GENERAL: Patient is an elderly male who is lying comfortable in the stretcher. Patient is not in any acute respiratory distress. Patient is somewhat lethargic , and has static tremors in all extremities. Has Vance catheter with urine in leg bag. HEAD AND FACE: No signs of trauma. No ecchymosis, hematomas or skull depressions. No sinus tenderness. EYES: PERRLA, EOMI x 2, No injected conjunctiva, no nystagmus. EARS: Hearing grossly intact. Ear canals and tympanic membranes are within normal limits. MOUTH: Oropharynx within normal limits. NECK: Supple, trachea is midline, no adenopathy, no JVD, no carotid bruit, no c- spine tenderness, neck with full ROM. CHEST: Symmetric, no tenderness at palpation LUNGS: Clear to auscultation bilaterally. No wheezing or crackles. Decreased breath sounds bilaterally CVS: Tachycardic, S1 and S2 present, no murmurs or gallops appreciated. ABDOMEN: Soft, non-tender. Mildly distented. No rebound no guarding, and no masses palpated. Bowel sounds are normal. EXTREMITIES: FROM in all major joints, no edema, no cyanosis or clubbing. Static tremors in all extremities NEURO: Alert and oriented x 3. No acute neurological deficits. Speech is normal and follows commands. SKIN: Dry and warm Triage Information Reviewed: Yes Vital Signs On Initial Exam: Initial Vitals Temp Pulse Resp BP Pulse Ox 103.2 F 99 21 187/82 94 11/27/17 19:15 11/27/17 19:15 11/27/17 19:15 11/27/17 19:15 11/27/17 19:15 Vital Signs Reviewed: Yes Diagnostics - Vital Signs Vital Signs Temp Pulse Resp BP Pulse Ox 11/27/17 19:15 103.2 F 99 21 187/82 94 - Laboratory Result Diagrams: 11/27/17 19:45 11/27/17 19:45 Lab Statement: Any lab studies that have been ordered have been reviewed, and results considered in the medical decision making process. - Radiology CXR Xray Interpretation: No Acute Changes Radiology Interpretation Completed By: ED Physician - No acute process. - EKG 1949 Cardiac Rate: NL - 98 EKG Rhythm: Sinus Rhythm ST Segment: Normal Ectopy: PACs EKG Interpretation: nl axis, no ischemic changes Course/Dx - Course Course Of Treatment: An 82-year-old M presents to the ED with a CC of febrile illness since 1629. (+) sudden onset, fever, chills, worse than baseline tremors , bilateral shoulder soreness with movement. (-) N/V/D, loss of appetite, urinary sx. PMHx Vance catheter 2 years, changed every 5 weeks, last change 3 weeks ago. PMHx Parkinson's disease. A CXR reveals no acute process. An EKG reveals sinus rhythm of 98 BPM, PAC's, nl axis, and no ischemic changes. In the ED course, pt was given Piperacillin/tazobactam, Tylenol, Motrin, and nl saline. - Diagnoses Provider Diagnoses: Sepsis due to urinary tract infection - Provider Notifications Discussed Care Of Patient With: Anamaria Adams Time Discussed With Above Provider: 21:15 Instructed by Provider To: Other - accepts admission. Discharge - Sign-Out/Discharge Documenting (check all that apply): Patient Departure - admit - Discharge Plan Condition: Fair Disposition: ADMITTED TO [facility] - Billing Disposition and Condition Condition: FAIR Disposition: Admitted to [facility] Attestation Statement User Type: Provider - I, Dr. Denis personally performed the services described in this documentation as scribed in my presence and it is both accurate and complete.
[2017-11-27 19:55] LABS: ABS Basophils 0.1 10^3/ul (0-0.2); ABS Eosinophils 0.2 10^3/ul (0-0.6); ABS Lymphocytes 0.6 10^3/ul (1.0-4.8); ABS Monocytes 1.3 10^3/ul (0-0.8); ABS Neutrophils 14.9 10^3/ul (1.5-7.7); ABS Nucleated RBC 0 10^3/ul; Hematocrit 37 % (42-52); Hemoglobin 12.6 g/dl (14.0-18.0); Lymphocyte % 3.4 % (25-47); Mean Corpuscular HGB Conc 34 g/dl (31-36); Mean Corpuscular Hemoglobin 31 pg (27-31); Mean Corpuscular Volume 92 fL (80-94); Mean Platelet Volume 6.1 um3 (7.4-10.4); Nucleated Red Blood Cells % 0; Platelet Count 267 10^3/ul (150-450); Red Blood Count 4.06 10^6/ul (4.00-5.40); Red Cell Distribution Width 14 % (10.5-15)
[2017-11-27 20:05] LABS: INR 0.96 (0.77-1.02)
[2017-11-27 20:11] LABS: EGFR Non-African American 53.6 (>60)
[2017-11-27 20:53] LABS: Urine Appearance Cloudy; Urine Blood 1+ (Negative); Urine Color Yellow; Urine Ketones Trace (Negative); Urine Protein Negative (Negative); Urine Red Blood Cell 2+(6-10/hpf) (Absent); Urine Specific Gravity 1.014 (1.010-1.030); Urine Urobilinogen Negative (Negative); Urine White Blood Cell 3+(>20/hpf) (Absent)
[2017-11-27] MEDS ORDERED: Ondansetron INJ* 2 MG/ML VIAL IV PRN (22:44)
[2017-11-27] MEDS ORDERED: oxyCODONE/Acetamin 10/325(NF) TAB PO PRN (22:46)
[2017-11-28] MEDS: NS 0.9% 1000 ML* 1,000 ML IV SCH ×2 (00:23→11:17)
[2017-11-28] MEDS: Piperacillin/Tazobac ADVAN(*) 3.375 GM in NS 0.9% 100 ML* 100 ML IVPB SCH ×4 (00:49→23:45)
[2017-11-28] MEDS: Carbidopa/Levodop 10/100 MG TAB(*) PO SCH ×15 (00:52→23:00)
--- NOTE | 2017-11-28 01:31 | HP ---
CC: Dr. Carmen; Dr. Gutierrez* HISTORY AND PHYSICAL: DATE OF ADMISSION: 11/27/17 PRIMARY CARE PROVIDER: Dr. Carmen. UROLOGIST: Dr. Gutierrez. CHIEF COMPLAINT: Fever and weakness. HISTORY OF PRESENT ILLNESS: Mr. Montana is an 82-year-old male who states that he had been in his usual state of health up till 4:30 p.m. on the day of admission when he suddenly developed a fever of 100.5 and shaking chills. The patient states following that, he developed weakness. The patient states he had no signs that he was becoming ill prior to this. He states he had felt completely normal for the day's prior. His appetite has been been good. He has some chronic constipation, but even that had not been an issue. The patient at this point feels wiped out and feels like he has generalized weakness. He is concerned about what may have precipitated this fever and shaking chills. 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 This was changed approximately 3 weeks ago without incident in Dr. Gutierrez's office. PAST MEDICAL HISTORY: 1. Parkinson's disease. 2. BPH. 3. Hypertension. 4. PMR. 5. History of vertigo. 6. Severe bilateral osteoarthritis of the shoulders. PAST SURGICAL HISTORY: TURP. MEDICATIONS: 1. Ranitidine 150 mg p.o. daily. 2. MiraLax 17 gm p.o. daily. 3. Flovent 2 puffs inhaled daily. 4. Hydrochlorothiazide 25 mg p.o. daily. 5. Carbidopa/levodopa 10/100 one-half tab at 0400, 0530, 0700, 0830, 1000, 1130 , 1300, 1430, 1600, 1730, 1900, 2030, 2200 and 2330 (this dosing will need to be confirmed). 6. Lisinopril 20 mg p.o. daily. 7. Percocet 10/325 one tab p.o. q. 4 hours p.r.n. pain. 8. Amlodipine 10 mg p.o. daily. ALLERGIES: ALLOPURINOL, ASPIRIN, QUINOLONES, and ALPHA BLOCKERS. FAMILY HISTORY: Mom at the age of 79 of lung cancer. Dad at age of 50 of an [place]. SOCIAL HISTORY: The patient is a nonsmoker. He does not drink. 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 He is . He has 4 children. He indicates that his , Bekah, would be his healthcare proxy. REVIEW OF SYSTEMS: A complete 11-system review of systems is obtained. Pertinent positives, negatives are as per HPI and otherwise negative. PHYSICAL EXAMINATION GENERAL: The patient is a well-developed, elderly male seen sitting up in the stretcher, in no acute distress. VITAL SIGNS: Blood pressure 169/72, pulse 88, respirations 19, temp 100.3 rectally, O2 sat 97% on room air. HEENT: Pupils are equal and round. Extraocular muscles are intact. Oropharynx is clear. Oral mucosa is moist. There is no submandibular, cervical , or supraclavicular adenopathy. Thyroid is not enlarged. No thyroid nodules noted. PULMONARY: Lungs are clear to auscultation bilaterally. CARDIAC: Normal S1, S2. Regular rate and rhythm. I did not appreciate any murmurs. There is no lower extremity edema. ABDOMEN: Bowel sounds present. Abdomen is soft, nontender, nondistended. MUSCULOSKELETAL: There is no cyanosis, no clubbing of the digits. There is full active range of motion of all 4 extremities. SKIN: Warm and dry. There are no rashes. NEUROLOGIC: The patient has a rest tremor noted in the hands bilaterally. Strength appears to be normal throughout. Sensation is intact throughout. PSYCH: The patient is alert. He is oriented x3. Affect appears appropriate. DIAGNOSTIC STUDIES/LAB DATA: WBC 17, hemoglobin 12.6, hematocrit 37, platelets 267. INR 0.96. Sodium 135, potassium 4.8, chloride 102, CO2 of 25, BUN 34, creatinine 1.29, glucose 119, lactic acid 1.3, calcium 9.4. Bilirubin 0.5, AST 12, ALT 4, alk-phos 86. CPK 98. Troponin 0.01. CRP 26.04. BNP 23. Albumin 4.5. Urinalysis reveals trace ketones, 1+ blood, 3+ leukocyte esterase, 3+ wbc's and 1+ bacteria. EKG reveals normal sinus rhythm with minimal ST depression in lead II. Chest x- ray to my interpretation appears clear. ASSESSMENT AND PLAN: Mr. Montana is an 82-year-old male with a history of a chronic Vance, Parkinson's disease, benign prostatic hypertrophy, hypertension, and polymyalgia rheumatica who presents to the emergency room with a sudden onset of fever and shaking chills and is admitted for probable sepsis secondary to urinary tract infection. 1. Sepsis secondary to probably urinary tract infection. This is most likely source. The patient states that he has had episodes similar to this in the past. He has grown extended-spectrum beta-lactamases Escherichia coli and Pseudomonas in the past. He will be continued on Zosyn via extended infusion protocol. We will await the urine culture. The patient's vital signs are stable. He has received 30 mL/kg bolus. His heart rate has improved with this. There has been no evidence of end-organ dysfunction. 2. Parkinson's disease: The patient will continue on his complicated Sinemet protocol. 3. Hypertension: I will continue the patient on his usual doses of amlodipine and lisinopril, though I will hold his hydrochlorothiazide while treating him for sepsis. 4. DVT prophylaxis: According to the Adult Thrombosis Prophylaxis Risk Factor Assessment Guide, the patient has a total risk factor score of 4 making him high risk. Heparin 5000 units subcutaneous q. 8 hours will be utilized as DVT prophylaxis. 5. Code status is full. TIME SPENT: Sixty-five minutes was spent admitting this patient, of which greater than half spent [id number] with the patient reviewing his history and performing physical exam. [id number]/CPS #: [id number] [place]
[2017-11-28] MEDS: Heparin VIAL(*) 5000 UNITS/ML VIAL (FIVE THOUSAND) SUBCUT SCH ×3 (05:32→21:57)
[2017-11-28] MEDS: oxyCODONE/Acetamin 5/325 MG* TAB PO PRN ×4 (05:38→23:00)
[2017-11-28] MEDS: oxyCODONE TAB* 5 MG TAB PO PRN ×4 (05:38→23:00)
--- NOTE | 2017-11-28 07:02 | RAD ---
INDICATION: Fever. COMPARISON: Comparison is made with a prior study from October 06, 2017. TECHNIQUE: A portable view of the chest was obtained. FINDINGS: Cardiac and mediastinal contours appear to be within normal limits. The lungs are clear. No pleural effusion is seen. There is severe arthritic change in the right shoulder. IMPRESSION: NO EVIDENCE FOR ACUTE DISEASE.
[2017-11-28 07:06] LABS: Hematocrit 31 % (42-52); Hemoglobin 10.4 g/dl (14.0-18.0); Mean Corpuscular HGB Conc 34 g/dl (31-36); Mean Corpuscular Hemoglobin 31 pg (27-31); Mean Corpuscular Volume 92 fL (80-94); Mean Platelet Volume 6.3 um3 (7.4-10.4); Platelet Count 222 10^3/ul (150-450); Red Blood Count 3.37 10^6/ul (4.00-5.40); Red Cell Distribution Width 14 % (10.5-15); White Blood Count 19.5 10^3/ul (3.5-10.8)
[2017-11-28 07:35] LABS: EGFR Non-African American 56.6 (>60)
[2017-11-28] MEDS: Polyethylene Glycol 3350* 17 GM PACKET PO SCH (07:35)
[2017-11-28] MEDS: Lisinopril TAB* 10 MG PO SCH (07:37)
[2017-11-28] MEDS: Clopidogrel TAB* 75 MG PO SCH (07:37)
[2017-11-28] MEDS: Famotidine TAB* 20 MG PO SCH (07:37)
[2017-11-28] MEDS: amLODIPine TAB* 5 MG PO SCH (07:37)
[2017-11-28 08:14] LABS: ABS Basophils 0.1 10^3/ul (0-0.2); ABS Eosinophils 0.1 10^3/ul (0-0.6); ABS Lymphocytes 1.3 10^3/ul (1.0-4.8); ABS Monocytes 2.6 10^3/ul (0-0.8); ABS Neutrophils 15.3 10^3/ul (1.5-7.7); ABS Nucleated RBC 0 10^3/ul; Eosinophil % 0.7 % (0-6); Lymphocyte % 6.8 % (25-47); Nucleated Red Blood Cells % 0
--- NOTE | 2017-11-28 11:25 | PN ---
Subjective Date of Service: 11/28/17 Interval History: Pt is concerned that once again he has UTI. he did not notice a change in urine appearance or smell. He changes his leg bag Q4H and sleeps with leg bag at home. Objective Active Medications: Amlodipine Besylate (Norvasc Tab*) 10 mg PO DAILY [facility] Last Admin: 11/28/17 07:37 Dose: 10 mg Carbidopa/Levodopa (Sinemet 10/100 Tab(*)) 0.5 tab PO 0400,0530,0700,0830 [facility] Last Admin: 11/28/17 09:33 Dose: 0.5 tab Carbidopa/Levodopa (Sinemet 10/100 Tab(*)) 0.5 tab PO 1000,1130,1300,1430 [facility] Last Admin: 11/28/17 10:21 Dose: 0.5 tab Carbidopa/Levodopa (Sinemet 10/100 Tab(*)) 0.5 tab PO 1600,1730,1900,2030 [facility] Carbidopa/Levodopa (Sinemet 10/100 Tab(*)) 0.5 tab PO 2200,2330 [facility] Last Admin: 11/28/17 00:52 Dose: 0.5 tab Clopidogrel Bisulfate (Plavix Tab*) 75 mg PO DAILY [facility] Last Admin: 11/28/17 07:37 Dose: 75 mg Famotidine (Pepcid Tab*) 20 mg PO DAILY [facility] Last Admin: 11/28/17 07:37 Dose: 20 mg Heparin Sodium (Porcine) (Heparin Vial(*)) 5,000 units SUBCUT Q8HR [facility] Last Admin: 11/28/17 05:32 Dose: 5,000 units Sodium Chloride (Ns 0.9% 1000 Ml*) 1,000 mls @ 100 mls/hr IV PER RATE [facility] Stop: 11/28/17 17:00 Last Admin: 11/28/17 00:23 Dose: 100 mls/hr Piperacillin Sod/Tazobactam (Sod 3.375 gm/ Sodium Chloride) 100 mls @ 25 mls/ hr IVPB Q8H [facility] Last Admin: 11/28/17 07:35 Dose: 25 mls/hr Lisinopril (Prinivil Tab*) 20 mg PO DAILY [facility] Last Admin: 11/28/17 07:37 Dose: 20 mg Mometasone Furoate (Asmanex 220 Mcg Mdi *) 1 puff INH QPM [facility] Ondansetron HCl (Zofran Inj*) 4 mg IV Q6H PRN PRN Reason: NAUSEA Oxycodone HCl (Roxycodone Tab*) 5 mg PO Q4H PRN PRN Reason: PAIN Last Admin: 11/28/17 05:38 Dose: 5 mg Oxycodone/Acetaminophen (Percocet 5/325 Tab*) 1 tab PO Q4H PRN PRN Reason: PAIN Last Admin: 11/28/17 05:38 Dose: 1 tab Polyethylene Glycol/Electrolytes (Miralax*) 17 gm PO DAILY [facility] Last Admin: 11/28/17 07:35 Dose: 17 gm Vital Signs - 8 hr 11/28/17 11/28/17 11/28/17 04:04 05:38 07:38 Temperature 97.6 F Pulse Rate 58 Respiratory 16 18 14 Rate Blood Pressure 115/48 (mmHg) O2 Sat by Pulse 99 Oximetry 11/28/17 07:47 Temperature 97.4 F Pulse Rate 57 Respiratory 18 Rate Blood Pressure 135/49 (mmHg) O2 Sat by Pulse 100 Oximetry Oxygen Devices in Use Now: Nasal Cannula Appearance: 82 yo M in nAD, aAOx3 Eyes: No Scleral Icterus, PERRLA Ears/Nose/Mouth/Throat: NL Teeth, Lips, Gums, Mucous Membranes Moist Neck: NL Appearance and Movements; NL JVP Respiratory: Symmetrical Chest Expansion and Respiratory Effort, Clear to Auscultation Cardiovascular: NL Sounds; No Murmurs; No JVD, RRR Abdominal: NL Sounds; No Tenderness; No Distention, No Hepatosplenomegaly Lymphatic: No Cervical Adenopathy Extremities: No Edema, No Clubbing, Cyanosis Skin: No Rash or Ulcers, No Nodules or Sclerosis Neurological: Alert and Oriented x 3, NL Muscle Strength and Tone, - - tremor noted in b/l UE's Result Diagrams: 11/28/17 06:58 11/28/17 06:58 Assess/Plan/Problems-Billing Assessment: 82 yo M with h/o Parkinon's, indwelling Vance presents with sepsis and UTI - Patient Problems (1) Sepsis Comment: sepsis criteria at admission suspect secondary to UTI - Ucx pending. H/o ESBL-cont Zosyn Vance changed on admission Will ask RN to teach pt how to use large Vance bag at night for home (2) CKD (chronic kidney disease) Comment: stable (3) HTN (hypertension) Comment: amlodipine, lisinopril holding hctz (4) Parkinson disease Comment: Continue home Sinemet. (5) DVT prophylaxis Comment: HSQ Status and Disposition: inpatient
[2017-11-28] MEDS: Mometasone 220 MCG MDI INH SCH ×2 (21:52→21:58)
[2017-11-29] MEDS: Carbidopa/Levodop 10/100 MG TAB(*) PO SCH ×6 (03:58→12:29)
[2017-11-29] MEDS: oxyCODONE/Acetamin 5/325 MG* TAB PO PRN ×2 (04:00→10:48)
[2017-11-29] MEDS: oxyCODONE TAB* 5 MG TAB PO PRN ×2 (04:00→10:52)
[2017-11-29] MEDS: Heparin VIAL(*) 5000 UNITS/ML VIAL (FIVE THOUSAND) SUBCUT SCH (05:32)
[2017-11-29 06:40] LABS: ABS Basophils 0 10^3/ul (0-0.2); ABS Eosinophils 0.2 10^3/ul (0-0.6); ABS Lymphocytes 1.6 10^3/ul (1.0-4.8); ABS Monocytes 1.5 10^3/ul (0-0.8); ABS Nucleated RBC 0 10^3/ul; Eosinophil % 1.8 % (0-6); Hematocrit 30 % (42-52); Hemoglobin 10.3 g/dl (14.0-18.0); Lymphocyte % 11.9 % (25-47); Mean Corpuscular HGB Conc 34 g/dl (31-36); Mean Corpuscular Hemoglobin 32 pg (27-31); Mean Corpuscular Volume 92 fL (80-94); Mean Platelet Volume 6.3 um3 (7.4-10.4); Nucleated Red Blood Cells % 0; Platelet Count 207 10^3/ul (150-450); Red Blood Count 3.26 10^6/ul (4.00-5.40); Red Cell Distribution Width 14 % (10.5-15); White Blood Count 13.4 10^3/ul (3.5-10.8)
[2017-11-29 06:59] LABS: EGFR Non-African American 58.3 (>60)
[2017-11-29 08:30] VITALS: BP 130/48
[2017-11-29] MEDS: Piperacillin/Tazobac ADVAN(*) 3.375 GM in NS 0.9% 100 ML* 100 ML IVPB SCH (08:33)
[2017-11-29] MEDS: Lisinopril TAB* 10 MG PO SCH (08:33)
[2017-11-29] MEDS: amLODIPine TAB* 5 MG PO SCH (08:33)
[2017-11-29] MEDS: Clopidogrel TAB* 75 MG PO SCH (08:34)
[2017-11-29] MEDS: Famotidine TAB* 20 MG PO SCH (08:34)
[2017-11-29] MEDS: Polyethylene Glycol 3350* 17 GM PACKET PO SCH (08:35)
--- NOTE | 2017-11-29 21:39 | DS ---
CC: Dr. Carmen; Dr. Gutierrez * DISCHARGE SUMMARY: DATE OF ADMISSION: 11/27/17 DATE OF DISCHARGE: 11/29/17 PRIMARY CARE PROVIDER: Dr. Carmen. DISCHARGE DIAGNOSIS: Sepsis likely due to Vance associated urinary tract infection. SECONDARY DIAGNOSES: 1. History of Parkinson disease. 2. History of benign prostatic hypertrophy. 3. Hypertension. 4. Polymyalgia rheumatica. 5. History of vertigo. 6. History of bilateral osteoarthritis of shoulders. 7. Status post transurethral resection of prostate. 8. History of neurogenic bladder with indwelling Vance in place. MEDICATIONS AT DISCHARGE: 1. Ranitidine 150 mg daily. 2. MiraLax 17 g daily. 3. Flovent 2 puffs inhale daily. 4. Hydrochlorothiazide 25 mg daily. 5. Carbidopa/levodopa 10/100 half a tablet at 4 a.m., 5:30, 7 a.m., 8:30, 10 a.m., 11:30, 1 p.m., 2:30 p.m., 4 p.m., 5:30 p.m., 7 p.m., 8:30 p.m., 10 p.m. and 11:30 p.m. 6. Lisinopril 20 mg daily. 7. Percocet on a p.r.n. basis. 8. Amlodipine 10 mg daily. 9. The patient is going to be discharged on Bactrim DS 1 tablet p.o. b.i.d. for a total of 5 days. Please note that apart from addition of the antibiotics, the patient's home medications were unchanged. LABORATORY DATA/STUDIES PERFORMED DURING HOSPITAL STAY: On 11/29/17, white blood cell count of 13.4, hemoglobin 10.3, hematocrit 30, platelet count of 207, 000. Sodium was 139, potassium 4.2, chloride 110, carbon dioxide 25, BUN 24, creatinine 1.2. Urinalysis showed +3 esterase, +3 wbc's, +2 rbc's, +1 bacteria. Urine cultures showed few Enterobacteriaceae but possible contamination. Blood cultures obtained on 11/27/17 were negative in growth at the time of discharge. HOSPITAL COURSE: Bo Montana is an 82-year-old male with history of Parkinson' s as well as indwelling Vance catheter who presented to the hospital complaining of chills and fever. His temperature on presentation was 103.2 degrees. He had rigors. He came in. 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 In the fall, he had urine cultures growing ESBL. At that point, the bacteria that grew was sensitive to Zosyn and the patient was placed on Zosyn during his hospital stay. His fever resolved and never recurred. Over the next 2 days of his hospital stay, he was hemodynamically stable and afebrile. He was taught how to change his Vance from a Vance bag that is only a leg bag that he uses even at night to a large bag that he can use for the night. It is possible that his leg bag fills up at night since he is sleeping and he is not changing it that often and that may predispose the patient to recurrent infections. Nevertheless, his urine cultures never re-grew significant organisms. At the time of discharge, the patient was offered to stay another day and to see whether urine cultures will come back with significant bacteria or be discharged home on empiric antibiotics. Unfortunately, according to cultures from the fall, there is no oral alternative that would cover the patient 's infection, if it in fact was ESBL again. Having said that, patient also had a UTI diagnosed earlier on this year in 2018 and at that point, he had E. coli that was sensitive to Bactrim. At this point, the patient is going to be placed on Bactrim for a total of 5 days. He is recommended to follow with his urologist, Dr. Gutierrez. The patient is recommended to use a large bag for his Vance catheter at night. At this point, after the intravenous fluid resuscitation at admission, the patient still requires a little bit of oxygen to ambulate. We are evaluating his oxygen needs at discharge, it is possible that he will require some oxygen to go home with. PHYSICAL EXAMINATION AT THE TIME OF DISCHARGE: Vital Signs: Blood pressure 130 /48, heart rate of 52 and regular, respiratory rate 18, oxygen saturation 99% on 2 L of oxygen nasal cannula, temperature 98.1. General: The patient is a very pleasant 82-year-old male who is in no acute distress, alert, awake and oriented x3. HEENT: Head: Atraumatic, normocephalic. Eyes: Pupils are equal , reactive to light and accommodation. Oropharynx is clear. Mucosa moist. Neck: Supple. No JVD. No bruits bilaterally. Cardiovascular: Regular rate and rhythm. No murmur. Respiratory: Clear to auscultation bilaterally. Abdomen: Soft, nontender. Bowel sounds are present in all 4 quadrants. No CVA tenderness bilaterally. Extremities: There is no edema. Pulses are +2 bilaterally. No clubbing or cyanosis. On evaluation of the skin, no ecchymotic areas or rashes noted. Neuro Evaluation: Speech clear. Cranial nerves II through XII grossly intact. Motor strength is 5/5 bilaterally, notable for bilateral upper and lower extremity tremor due to Parkinson's. Psychiatric evaluation: Very pleasant, cooperative with evaluation, oriented x3 with no evidence of anxiety or depression. Please note that this is a short summary of the patient's hospital stay. Please refer to further medical records for details. TIME SPENT: Approximately 45 minutes were spent on preparation of the patient' s discharge. [id number]/[facility] #: [id number] MTDD
== END 2017-11-29 13:30 | disposition home health service (06) | DRG 698 ==
LOC: ED 19:06 → MED 22:44
PROVIDERS: ADMIT Hospitalist; ATTEND Internal Medicine
DX: T83.518A Infection and inflammatory reaction due to other urinary catheter, initial encounter (principal); A41.9 Sepsis, unspecified organism; N39.0 Urinary tract infection, site not specified; Y73.1 Therapeutic (nonsurgical) and rehabilitative gastroenterology and urology devices associated with adverse incidents; G20 Parkinson's disease; N40.0 Benign prostatic hyperplasia without lower urinary tract symptoms; M35.3 Polymyalgia rheumatica; N31.9 Neuromuscular dysfunction of bladder, unspecified; M19.012 Primary osteoarthritis, left shoulder; M19.011 Primary osteoarthritis, right shoulder; K59.09 Other constipation; K21.9 Gastro-esophageal reflux disease without esophagitis; Z96.651 Presence of right artificial knee joint; N18.9 Chronic kidney disease, unspecified; I12.9 Hypertensive chronic kidney disease with stage 1 through stage 4 chronic kidney disease, or unspecified chronic kidney disease; Y92.9 Unspecified place or not applicable; Z88.8 Allergy status to other drugs, medicaments and biological substances; Z82.49 Family history of ischemic heart disease and other diseases of the circulatory system; Z80.1 Family history of malignant neoplasm of trachea, bronchus and lung; Z87.440 Personal history of urinary (tract) infections
CPT/HCPCS: 36415; 71045; 80048; 80053; 81003; 81015; 82550; 83605; 83880; 84484; 85025; 85610; 85730; 86140; 86850; 86900; 86901; 87040; 87086; 93005; 99284; A9270-GY; J1644; J2543; J3370